=== PATIENT | male | born 1965 | race Caucasian/White ===

== ENCOUNTER 2020-12-13 12:41 | Emergency (ER) | payer OTHER, SELFPAY ==
--- NOTE | ~2020-12-13 | XR_ITS ---
EXAMINATION: XR ANKLE, LEFT CLINICAL INFORMATION: 4 days ago. Left ankle pain COMPARISON: None TECHNIQUE: AP, lateral, and mortise views of the left ankle. FINDINGS: There are moderate size calcaneal the and retrocalcaneal enthesophytes. No visible acute fracture, dislocation or subluxation seen. The soft tissues are normal. XR/XR ankle LT 2V IMPRESSION: Moderate-sized calcaneal heel and retrocalcaneal enthesophytes. There is no visible acute fracture or dislocation seen.
[2020-12-13 12:58] VITALS: BP 140/99; PULSE 92; RESP 16; TEMP 36.7; O2SAT 97; BMI 20.9
--- NOTE | 2020-12-13 14:16 | ED.LOWEXIN ---
HPI - Extremity Injury (Lower) General Chief Complaint: Extremity Injury, Lower Stated Complaint: lt ft injury Time Seen by Provider: 12/13/20 14:16 History of Present Illness HPI Narrative: Patient complains of left garvin pain after he hit into a piece of furniture while trying to move it several days ago now it is red and painful, no fever no chills no difficulty ambulating Related Data Previous Rx's Medication Instructions Recorded cephalexin 500 mg PO QID 7 Days #28 tab 12/13/20 ibuprofen 600 mg PO Q6H PRN #20 tab 12/13/20 oxycodone 5 mg PO Q6H PRN #10 tab 12/13/20 Allergies Allergy/AdvReac Type Severity Reaction Status Date / Time No Known Allergies Allergy Verified 12/13/20 14:30 Review of Systems Review of Systems: Positive for left garvin redness and pain Negatives are no fever no chills no dizziness no weakness no confusion or headache no neck pain no chest pain or shortness breath no abdominal pain no calf pain or swelling, no other skin rash no joint swelling PMFSH Past Medical History Source: nursing notes reviewed Medical History (Updated 12/14/20 @ 00:01 by Eren Yanes) Anxiety Asthma Depression GERD (gastroesophageal reflux disease) Seasonal allergies Surgical History (Updated 12/13/20 @ 13:01 by Lyndsey Huang) Hx of spinal surgery Social History Social History Advance Directives: Yes Advance Directives Information Provided: Yes Advance Directives on File: No Physical Exam Vital Signs: Vital Signs: Last Vital Signs Temp 98.0 F 12/13/20 12:58 Pulse 92 12/13/20 12:58 Resp 16 12/13/20 12:58 BP 140/99 H 12/13/20 12:58 Pulse Ox 97 12/13/20 12:58 Body Mass Index 20.9 General appearance is no acute distress Head is normocephalic atraumatic Neck is supple Respiratory no distress Extremities the left anterior lower leg has an area of redness with warmth and some tenderness without any significant wound there is no swelling of ankle or knee, patient is ambulating normally with full range of motion in knee and ankle Skin no other rash Neuro no gross motor or sensory deficit Course Course Course Narrative: X-ray was negative with no sign of bone infection Patient is treated for cellulitis with Keflex and discharged Discharge Plan Discharge Clinical Impression: Cellulitis Patient Disposition: Home, Self-Care Additional Instructions: There is an infected area on leg so we started antibiotic Keflex If you can, get probiotics available sack-awy-bcdqaul at the pharmacy to help prevent diarrhea from antibiotics Follow-up with her doctor in 2-3 days for recheck, if he is not available come to the ER for recheck in 2-3 days Return any time for spreading redness, worse pain and swelling, fever, red stripe up leg, any worse condition or any concerns Prescriptions: New cephalexin 500 mg tablet 500 mg PO QID 7 Days Qty: 28 RF: 0 ibuprofen 600 mg tablet 600 mg PO Q6H PRN (Reason: pain) Qty: 20 RF: 0 oxycodone 5 mg tablet 5 mg PO Q6H PRN (Reason: pain) Qty: 10 RF: 0 Interventions: ED Discharge Assessment Last Done: 12/13/20 15:02 Discharge Date/Time: 12/13/20 15:02
[2020-12-13] MEDS: cephALEXin 500 MG CAPSULE PO (14:37)
[2020-12-13] MEDS: Diphth,Pertus(ACell),Tet Adult 0.5 ML SYRINGE IM (14:37)
== END 2020-12-13 15:02 | disposition home or self-care (01) ==
PROVIDERS: Emergency Provider Emergency Medicine; PCP Internal Medicine
DX: L03.116 Cellulitis of left lower limb (principal); M79.662 Pain in left lower leg
CPT/HCPCS: 73600; 90471; 90715; 99283; 99284

== ENCOUNTER 2020-12-18 12:20 | Emergency (ER) | payer OTHER, SELFPAY ==
[2020-12-18 12:22] VITALS: BP 125/83; PULSE 84; RESP 18; TEMP 36.1; O2SAT 98; BMI 20.9
--- NOTE | 2020-12-18 14:04 | ED_ITS ---
HPI - Skin/Abscess/Foreign Bdy General Chief complaint: Skin/Abscess/Foreign Body Stated complaint: WOUND CHECK Time Seen by Provider: 12/18/20 13:43 Source: patient Mode of arrival: ambulatory History of Present Illness HPI narrative: 55-year-old male with a past medical history asthma, depression, GERD, anxiety, left lower extremity cellulitis seen in our ED on 12/13 presenting to ED for cellulitis recheck, reports symptoms persistent. Admits to compliance with previously prescribed Keflex. Denies fever, chills, numbness, tingling, drainage from area, trauma Related Data Previous Rx's Medication Instructions Recorded cephalexin 500 mg PO QID 7 Days #28 tab 12/13/20 ibuprofen 600 mg PO Q6H PRN #20 tab 12/13/20 oxycodone 5 mg PO Q6H PRN #10 tab 12/13/20 doxycycline hyclate 100 mg PO BID 7 Days #14 tab 12/18/20 hydrocodone-acetaminophen 1 tab PO Q8H PRN 3 Days #9 tab 12/18/20 Allergies Allergy/AdvReac Type Severity Reaction Status Date / Time No Known Allergies Allergy Verified 12/13/20 14:30 Review of Systems Review of Systems: Constitutional: No Fever, No Chills Cardiovascular: No Chest Pain, No SOB Respiratory: No Cough, No Sputum, No Wheezing Gastrointestinal: No Nausea, No Vomiting, No Abdominal pain Musculoskeletal: +LLE pain No Myalgias Skin: + left lower extremity erythema Neuro: No Weakness, No Numbness, No Paresthesias Yes all other systems are reviewed and are negative PMFSH Past Medical History Attestation statement: The following information was validated with the patient. Medical History (Updated 12/18/20 @ 14:06 by BEULAH Oquendo) Anxiety Asthma Depression GERD (gastroesophageal reflux disease) Seasonal allergies Surgical History Hx of spinal surgery Social History Social History Advance Directives: Yes Advance Directives Information Provided: Yes Advance Directives on File: No Physical Exam Vital Signs: Vital Signs: Last Vital Signs Temp 97.0 F 12/18/20 12:22 Pulse 84 12/18/20 12:22 Resp 18 12/18/20 12:22 BP 125/83 12/18/20 12:22 Pulse Ox 98 12/18/20 12:22 Body Mass Index 20.9 Const: General: cooperative and healthy appearing Orientation/consciousness: patient oriented x3 Limitations: no limitations HENMT: Head: Yes normal to inspection Ears: hearing grossly normal bilaterally General nose exam: Normal external nose present Face and sinus: Yes normal facial exam Eyes: General: appearance normal, both eyes and all related structures EOM: EOMs intact bilaterally Neck: Neck: Yes normal visual inspection Resp: Effort & Inspection: normal respiratory effort Cardio: Rate: regular rate Peripheral pulses: dorsalis pedis present Skin: Other: + hard indurated abscess noted to distal left lower extremity with surrounding cellulitis that is improved from previous drawn lines. + tender to palpation, no fluctuance, no streaking Neuro: General: patient oriented x3, tone normal and moves all extremities Gait exam (Neuro): Normal gait present Extrem: General: Yes normal to inspection MDM - Skin/Abscess/Foreign Bdy MDM Narrative Medical decision making narrative: 55-year-old male with a past medical history asthma, depression, GERD, anxiety, left lower extremity cellulitis seen in our ED on 12/13 presenting to ED for cellulitis recheck, reports symptoms persistent. On exam VSS, NAD/well-appearing, physical exam as above, consistent with indurated abscess with surrounding cellulitis. Will add doxycycline on to regimen Medical Records Attestation: I reviewed the patient's medical records. Discharge Plan Discharge Clinical Impression: Abscess of skin or subcutaneous tissue Qualifiers: Site of cutaneous abscess of extremity: lower extremity Laterality: left Cellulitis Qualifiers: Site of cellulitis of extremity: lower extremity Laterality: left Patient Disposition: Home, Self-Care Instructions: Cellulitis (ED), Abscess (ED) Additional Instructions: You have an abscess on your left lower extremity. Continue taking previously prescribed Keflex, in addition take doxycycline. Continue ibuprofen and Tylenol at home. In addition [place] his opiate pain medication, take only when pain is severe for the next 3 days. If area begins to spread past the lines/worsen, grow, begins to have drainage or you have fever return to the ED Tiene un absceso en la extremidad inferior izquierda. Contin?e tomando Keflex previamente recetado, adem?s tome doxiciclina. Contin?e con ibuprofeno y Tylenol en casa. Adem?s de [place], ballesteros analg?sico opi?civil engineering intern, t?colunga solo cuando el dolor sea intenso ginny los pr?ximos 3 d?as. Si el ?geovani comienza a extenderse m?s all? de las l?neas / empeora, crece, comienza a supurar o tiene fiebre, regrese al servicio de urgencias Prescriptions: New doxycycline hyclate 100 mg tablet 100 mg PO BID 7 Days Qty: 14 RF: 0 hydrocodone-acetaminophen 5-325 mg tablet 1 tab PO Q8H PRN (Reason: pain, severe) 3 Days Qty: 9 RF: 0 No Action cephalexin 500 mg tablet 500 mg PO QID 7 Days Qty: 28 RF: 0 ibuprofen 600 mg tablet 600 mg PO Q6H PRN (Reason: pain) Qty: 20 RF: 0 oxycodone 5 mg tablet 5 mg PO Q6H PRN (Reason: pain) Qty: 10 RF: 0 Referrals: Marsha Sanders MD [Primary Care Provider] - 5 days Print Language: Estonian
== END 2020-12-18 14:20 | disposition home or self-care (01) ==
PROVIDERS: Emergency Provider Emergency Medicine Emergency Medical Services; PCP Internal Medicine
DX: L02.416 Cutaneous abscess of left lower limb (principal); J45.909 Unspecified asthma, uncomplicated; M79.662 Pain in left lower leg; Z79.899 Other long term (current) drug therapy
CPT/HCPCS: 99283

== ENCOUNTER 2024-11-27 11:43 | Outpatient (REF) | payer OTHER, SELFPAY ==
--- OUTSIDE RECORDS SUMMARY | 2024-11-27 11:46 | XMS_ITS | Encounter Summary ---
Author Organization [facility] Address [address] [place] [address] Care Team Providers Care Pattern Puncher Name Role Phone Kobi Seymour MD Primary Care Provider [phone] Reason for Referral * Imaging (Emergency) - Authorized Specialty Diagnoses / Procedures Referred By Dennis randolph Referred To Contact Radiology Diagnoses Lump in armpit, left Procedures US Axilla (Breast) Limited Left Vlad Harp NP [address] [place] [address] Phone: tel: fax: [address] Phone: tel: Referral ID Status Reason Start Date Expiration Date V isits Requested Visits Authorized [id number] Authorized 11/22/2024 11/22/2025 1 1 Reason for Visit * Reason Comments lump Lump and swollen on left side of armpit Encounter Details Date Type Department Care Team (Late st Contact Info) Description 11/22/2024 3:30 PM EDT Office Visit Adult Medicine [address] [phone] Vlad Harp, EXERCISER HORSE [address] [place], [place] Enlarged lymph nodes in armpit (Primary Dx); Lump in armpit, left Social History Tobacco Use Types Packs/Day Years [...] for your loved ones. For example, children's lunchroom supervisor or elderly care for an older adult? [...] PM EDT documented as of this encounter Last Filed Vital Signs Vital Sign Reading Time Taken Comments Blood Pressure 126/83 11/22/2024 3:24 PM EDT Pulse 75 11/22/2024 3:24 PM EDT Temperature 36.6 ??C (97.9 ??F) 11/22/2024 3:24 PM ED T Respiratory Rate 16 11/22/2024 3:24 PM EDT Oxygen Saturation 99% 11/22/2024 3:24 PM EDT Inhaled Oxygen Concentration - - Weight 103 kg (226 lb 3.2 oz) 11/22/2024 3:24 P M EDT Height 175.3 cm (5' 9 ) 11/22/2024 3:24 PM EDT Body Mass Index 33.4 11/22/2024 3:24 PM EDT documented in this encounter Progress Notes * Vlad Harp NP - 11/22/2024 3:30 PM EDT PATIENT'S PCP: Kobi Seymour MD LAST VISIT IN THIS DEPARTMENT: Visit date not found I have obtained verbal consent from Gagandeep Rice prior to the recording. I have advised Gagandeep Rice that he may refuse the recording and require the recording to be turned off at anytime during this encounter. Due to language barrier, a [facility] chemical production machine operator (Sathish #[id number]) was present via video call during the history-taking and subsequent discussion with this patient. Gagandeep Rice is a 58 y.o. (: 1965) male who presents today for: Chief Complaint Patient presents with lump Lump and swollen on left side of armpit SUBJECTIVE History of Present Illness The patient is a 58-year-old male who presents for evaluation of left axillary discomfort/pain. Discomfort in the left axillary region has been present for the past week, described as a sensationof something being under the armpit a lump. Upon lifting his arms, the left side appears slightly more swollen than the right, as confirmed by his . The onset of noticeable swelling occurred yesterday. Pain is characterized as stabbing in nature. No systemic symptoms such as fevers, chills, or cough are reported. Gastrointestinal symptoms such as nausea or vomiting are absent. Respiratory symptoms such as shortness of breath are not reported. Chest pain is present, attributed to a known esophageal condition for which surgery was previously performed. This pain is typically triggered by the ingestion of air or certain types of food and is localized under one of his ribs. PAST SURGICAL HISTORY: Esophageal surgery Abscess drainage under the left axillary (self-drained) Review Of System Review of Systems Constitutional: Negative. Respiratory: Negative. Cardiovascular: Negative. Skin: Negative. Neurological: Negative. Hematological: Positive for adenopathy. Swelling under the left armpit Painful/tender to touch The following portions of the patient's chart were reviewed in this encounter and updated as appropriate: OBJECTIVE Vitals: 11/22/24 1524 BP: 126/83 Pulse: 75 Resp: 16 Temp: 36.6 ??C (97.9 ??F) TempSrc: Temporal SpO2: 99% Weight: 103 kg (226 lb 3.2 oz) Height: 1.753 m (69 ) Body mass index is 33.4 kg/m??. Plan is deferred until next visit Allergies Allergen Reactions House Dust Other Reaction(s): OTHER Runny nose ,sneezing Pollen Extracts Cough and Itching Active Medication: Current Outpatient Medications Medication Instructions clonazePAM (KLONOPIN) 1 mg, oral, 2 times daily PRN cyanocobalamin (VITAMIN B-12) 2,000 mcg tablet 1 tablet, Daily diphenhydrAMINE (BENADRYL) 50 mg capsule 1 capsule, Every 6 hours PRN ergocalciferol (VITAMIN D-2) 50,000 Units, Weekly esomeprazole (NEXIUM PACKET) 20 mg, oral, 2 times daily before meals finasteride (PROSCAR) 5 mg, Daily gabapentin (NEURONTIN) 300 mg capsule Take 1 capsule by mouth 2 times daily and 2 capsules by mouthat bedtime. hydrOXYzine pamoate (VISTARIL) 50 mg, 3 times daily PRN latanoprost (XALATAN) 0.005 % ophthalmic solution 1 drop, Nightly lidocaine 0.5% (SOLARCAINE) 0.5 % gel external gel 1 g, 2 times daily naproxen (EC NAPROSYN) 500 mg EC tablet Take 1 tablet twice a day for 14 days. Take with food pantoprazole (PROTONIX) 40 mg EC tablet TAKE 1 TABLET BY MOUTH 2 TIMES DAILY (BEFORE MEALS) FOR 180DAYS. senna (SENOKOT) 8.6 mg, Nightly sildenafiL (VIAGRA) 100 mg tablet 1 tablet, As needed sucralfate (CARAFATE) 100 mg/mL suspension TAKE 10 ML BY MOUTH 2 TIMES DAILY (BEFORE MEALS). traMADoL (ULTRAM) 50 mg, oral, 2 times daily PRN Physical Exam Vitals reviewed. Constitutional: Appearance: Normal appearance. Cardiovascular: Rate and Rhythm: Normal rate and regular rhythm. Pulses: Normal pulses. Heart sounds: Normal heart sounds. Pulmonary: Effort: Pulmonary effort is normal. Breath sounds: Normal breath sounds. Lymphadenopathy: Upper Body: Left upper body: Axillary adenopathy present. Comments: Painful/tender to touch Skin: General: Skin is warm and dry. Neurological: General: No focal deficit present. Mental Status: He is alert. Mental status is at baseline. Imaging No Pertinent Imaging Laboratory: CBC: No results found for: WBC , HGB , HCT , MCV , PLT CMP: No results found for: NA , K , CL , CO2 , GLUCOSE , BUN , CREATININE , CALCIUM , PROT , ALBUMIN , BILITOT , AST , ALT , URICACID , PHOS , MG , ALKPHOS , CKTOTAL , EGFR No results found for: LDLCALC 1. Enlarged lymph nodes in armpit 2. Lump in armpit, left Assessment & Plan 1. Left axillary discomfort - Reports discomfort and swelling in the left axillary region, which began about a week ago - No associated fever, chills, cough, nausea, vomiting, or shortness of breath; pain described as astabbing sensation - Possible infection vs enlarge lymph nodes - Comprehensive blood panel ordered to investigate the cause of discomfort - Ultrasound of the left axillary region scheduled to assess underlying structures and identify potential abnormalities FOLLOW-UP: Follow up if symptoms worsen or fail to improve, for Please book with care team. Vlad Harp NP ADULT MEDICINE [address] Today's documentation was made using voice recognition software.This note may contain grammatical errors secondary to this software. documented in this encounter Plan of Treatment Upcoming Encounters Date Type Department Care Team (Late st Contact Info) Description 01/03/2025 9:30 AM EDT Office Visit Orthopedics [address] [phone] Maxx Mccord PA [address] [place] [address] 02/13/2025 8:30 AM EDT Office Visit Adult [address] [phone] Bear Robbins PA [address] [place] [address] documented as of this encounter Results * US Axilla (Breast) Limited Left (11/24/2024 11:03 AM EDT) Anatomical Region Laterality Modality Breast Left Ultrasound 11/24/2024 4:21 PM EDT Narrative 11/24/2024 4:23 PM EDT Targeted ultrasound of the left axilla. History 58 years old male patient with lump in the left axilla. Examination was directed by the patient to the area of concern in the left axilla. ??There is no evidence of lymphadenopathy, there is no evidence of cystic or solid masses or abnormal vascularity. CONCLUSIONS: No ultrasonographic abnormality in the region of concern in the left axilla. -------- FINAL REPORT -------- Dictated By: Anamaria Capone Dictated Date: 11/24/2024 16:21 ET Assigned Physician: Anamaria Capone Reviewed and Electronically Signed By: Anamaria Capone Signed Date: 11/24/2024 16:23 ET Workstation ID: [id number] Transcribed By: Self Edit Transcribed Date: 11/24/2024 16:21 ET Procedure Note Anamaria Capone MD - 11/24/2024 Targeted ultrasound of the left axilla. History 58 years old male patient with lump in the left axilla. Examination was directed by the patient to the area of concern in the leftaxilla. There is no evidence of lymphadenopathy, there is no evidence ofcystic or solid masses or abnormal vascularity. CONCLUSIONS: No ultrasonographic abnormality in the region of concern inthe left axilla. -------- FINAL REPORT -------- Dictated By: Anamaria Capone Dictated Date: 11/24/2024 16:21 ET Assigned Physician: Anamaria Capone Reviewed and Electronically Signed By: Anamaria Capone Signed Date: 11/24/2024 16:23 ET Workstation ID: [id number] Transcribed By: Self Edit Transcribed Date: 11/24/2024 16:21 ET us Vlad Harp EXERCISER HORSE IMG US PROCEDURES Final Resu lt documented in this encounter Visit Diagnoses Diagnosis Enlarged lymph nodes in armpit- Primary Enlargement of lymph nodes Lump in armpit, left Lump in armpit, left documented in this encounter Discontinued Medications Medication Sig Discontinue Reason Start Date End Da te ketoconazole (NIZORAL) 2 % cream Apply cream to the affected areas of the bottom and top of feet twice daily 08/04/2023 11/22/2024 documented as of this encounter Additional Health Concerns Assessment Noted Time PHQ-9 Depression Total Score: 5 08/14/19 25 6:54 AM EST documented as of this encounter Care Teams Pattern Puncher Relationship Specialty Start Date End Date Kobi Seymour MD [address] [place] [address] PCP - General Internal Medicine 01/14/21 documented as of this encounter
--- OUTSIDE RECORDS SUMMARY | 2024-11-27 11:46 | XMS_ITS | Patient Health Record ---
Author Organization [facility] Address [address] [place], [place] [id number] Care Team Providers Care Roof Shingler Name Role Phone No, PCP Primary Care Provider Ino Fortune Unavailable [phone] Reason For Referral No Information Plan Of Treatment No Information Insurance Providers Payer Name Payer Address Payer Phone Subscriber Number Group Number Insured Name Patient Relationship to Insured Coverage Start Date Coverage End Date [place] Medicaid Standard [address] [place] [address] [id number] Gagandeep Elena Self - patient is the insured 3
--- OUTSIDE RECORDS SUMMARY | 2024-11-27 11:46 | XMS_ITS | Encounter Summary ---
Author Organization [employer] Address [address] [place] [address] Care Team Providers Care Alternative Energy Engineer Name Role Phone Kobi Seymour MD Primary Care Provider [phone] Encounter Details Date Type Department Care Team (Latest Contact Info) Description 11/22/2024 8:23 AM EDT - 11/22/2024 11:59 PM EDT Hospital Encounter XRAY - [place] [address] [place] [address] Trigger finger, left middle finger Discharge Disposition: Home or Self Care Social History Tobacco Use Types Packs/Day Years [...] care for your loved ones. For example, early childhood worker or elderly care for an older adult? [...] PM EDT documented as of this encounter Medications at Time of Discharge clonazePAM (KlonoPIN) 1 mg tablet TAKE 1 TABLET (1 MG TOTAL) BY MOUTH TWICE A DAY IF NEEDED FOR ANXIETY 56 tablet 11/23/2024 traMADoL (ULTRAM) 50 mg tablet Take 1 tablet (50 mg total) by mouth 2 (two) times a day if needed for severe pain. FOR SEVERE PAIN Max Daily Amount: 100 mg 60 tablet 11/23/2024 cyanocobalamin (VITAMIN B-12) 2,000 mcg tablet Take 1 tablet (2,000 mcg total) by mouth 1 (one) time each day. 03/24/2023 diphenhydrAMINE (BENADRYL) 50 mg capsule Take 1 capsule (50 mg total) by mouth every 6 (six) hours if needed for itching. 02/12/2023 ergocalciferol (VITAMIN D-2) 1,250 mcg (50,000 unit) capsule Take 1 capsule (50,000 Units total) by mouth 1 (one) time per week. 11/07/2024 esomeprazole (NexIUM Packet) 20 mg packet Take 20 mg by mouth 2 (two) times a day before meals. 1800 packet 3 07/12/2024 finasteride (PROSCAR) 5 mg tablet Take 1 tablet (5 mg total) by mouth 1 (one) time each day. gabapentin (NEURONTIN) 300 mg capsule Take 1 capsule by mouth 2 times daily and 2 capsules by mouth at bedtime. 11/18/2023 hydrOXYzine pamoate (VISTARIL) 50 mg capsule Take 1 capsule (50 mg total) by mouth 3 (three) times a day if needed for anxiety. 12/13/2023 latanoprost (XALATAN) 0.005 % ophthalmic solution Administer 1 drop into both eyes at bedtime. 10/22/2024 lidocaine 0.5% (SOLARCAINE) 0.5 % gel external gel Apply 1 g topically 2 (two) times a day. 04/13/2024 naproxen (EC NAPROSYN) 500 mg EC tablet Take 1 tablet twice a day for 14 days. Take with food 28 tablet 10/27/2024 pantoprazole (PROTONIX) 40 mg EC tablet TAKE 1 TABLET BY MOUTH 2 TIMES DAILY (BEFORE MEALS) FOR 180 DAYS. 180 tablet 1 10/23/2024 senna (SENOKOT) 8.6 mg tablet Take 1 tablet (8.6 mg total) by mouth at bedtime. 10/06/2022 sildenafiL (VIAGRA) 100 mg tablet Take 1 tablet (100 mg total) by mouth as needed. sucralfate (CARAFATE) 100 mg/mL suspension TAKE 10 ML BY MOUTH 2 TIMES DAILY (BEFORE MEALS). 1800 mL 3 08/07/2024 clonazePAM (KlonoPIN) 1 mg tablet Take 1 tablet (1 mg total) by mouth 2 (two) times a day if needed for anxiety. 56 tablet 09/11/2024 traMADoL (ULTRAM) 50 mg tablet Take 1 tablet (50 mg total) by mouth 2 (two) times a day if needed for severe pain. Max Daily Amount: 100 mg 60 tablet 09/11/2024 documented as of this encounter Discharge Disposition Disposition Code Departure Means Destination Home or Self Care documented in this encounter Plan of Treatment Upcoming Encounters Date Type Department Care Team (Late st Contact Info) Description 01/03/2025 9:30 AM EDT Office Visit Orthopedics [address] [phone] Maxx Mccord PA [address] [place], [place] 02/13/2025 8:30 AM EDT Office Visit Adult Medicine [place] [address] [phone] Bear Robbins PA [address] [place] [address] documented as of this encounter Procedures Procedure Name Priority Date/Time Associated Diagnosis Comments XR HAND 3+ VIEWS LEFT Routine 11/22/2024 8:36 AM EDT Trigger finger, left middle finger documented in this encounter Results * XR Hand 3+ Views Left (11/22/2024 8:36 AM EDT) Anatomical Region Laterality Modality Upper Extremities, Hand Left Radiogra [facility] Imaging 11/22/2024 9:35 AM EDT Impressions 11/22/2024 9:40 AM EDT No acute fracture or dislocation of the left hand. -------- FINAL REPORT -------- Dictated By: Loraine Sesay Dictated Date: 11/22/2024 09:35 ET Assigned Physician: Loraine Sesay Reviewed and Electronically Signed By: Loraine Sesay Signed Date: 11/22/2024 09:40 ET Workstation ID: [id number] Transcribed By: Self Edit Transcribed Date: 11/22/2024 09:35 ET Narrative 11/22/2024 9:40 AM EDT HISTORY: trigger finger TECHNIQUE: AP, lateral, and oblique radiographs of the left hand COMPARISON: None FINDINGS: There is normal mineralization with no evidence of fracture or malalignment. ??The visualized articulations are normal. ??No significant soft tissue swelling is identified. Procedure Note Loraine Sesay MD - 11/22/2024 HISTORY: trigger finger TECHNIQUE: AP, lateral, and oblique radiographs of the left hand COMPARISON: None FINDINGS: There is normal mineralization with no evidence of fracture ormalalignment. The visualized articulations are normal. No significantsoft tissue swelling is identified. IMPRESSION: No acute fracture or dislocation of the left hand. -------- FINAL REPORT -------- Dictated By: Loraine Sesay Dictated Date: 11/22/2024 09:35 ET Assigned Physician: Loraine Sesay Reviewed and Electronically Signed By: Loraine Sesay Signed Date: 11/22/2024 09:40 ET Workstation ID: [id number] Transcribed By: Self Edit Transcribed Date: 11/22/2024 09:35 ET Maxx RIOJAS IMG XR PROCEDURES Final Result documented in this encounter Visit Diagnoses Diagnosis Trigger finger, left middle finger documented in this encounter Additional Health Concerns Assessment Noted Time PHQ-9 Depression Total Score: 5 08/14/19 25 6:54 AM EST documented as of this encounter Care Teams Alternative Energy Engineer Relationship Specialty Start Date End Date Kobi Seymour MD [address] [place] [id number] PCP - General Internal Medicine 01/14/21 documented as of this encounter
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
--- OUTSIDE RECORDS SUMMARY | 2024-11-27 11:46 | XMS_ITS | Clinical Summary ---
Author Organization [facility] Address [address] [id number] Care Team Providers Care Business Analyst Name Role Phone Kobi Seymour MD Primary Care Provider [phone] Allergies Active Allergy Reactions Criticality Noted Date Comments Dust Other (See Comments) Medium 06/12/2022 Runny nose ,sneezing Medications Medication Sig Dispensed Refills Start Date End Date Status gabapentin (NEURONTIN) 300 MG capsule Take 1 capsule by mouth 3 (three) times a day. 0 10/21/2021 Active clonazePAM (KlonoPIN) 0.5 MG tablet TAKE 1 TABLET BY MOUTH TWICE A DAY NEEDED FOR ANXIETY 0 12/22/2021 Active omeprazole (PriLOSEC) 20 MG capsule Take 1 capsule by mouth daily. 0 07/29/2021 Active ergocalciferol (VITAMIN D2) capsule 38727 units TAKE 1 CAPSULE BY MOUTH ONCE A WEEK FOR 90 DAUS 0 10/31/2021 Active metoprolol tartrate (LOPRESSOR) 25 MG tablet Take 25 mg by mouth 2 (two) times a day. 0 10/21/2021 Active hydrOXYzine (ATARAX) 50 MG tablet Take 50 mg by mouth. 0 08/05/2021 Active traMADol (ULTRAM) 50 MG tablet TAKE 1 TABLET (50 MG) BY ORAL ROUTE EVERY 6 HOURS WITH FOOD NEEDED FOR PAIN 0 11/18/2021 Active fluconazole (DIFLUCAN) 100 MG tablet TAKE 2 TABLETS BY MOUTH ON DAY 1 THEN 1 TABLET DAILY FOR 4 WEEKS 0 08/14/2022 Active Active Problems Problem Noted Date Diagnosed Date CIDP (chronic inflammatory demyelinating polyneu ropathy) 02/03/2022 Long-term current use of intravenous immunoglobu nhan (IVIG) 01/12/2022 Social History Tobacco Use Types Packs/Day Years Used Date Smoking Tobacco: Never Assessed Sex and Gender Information Value Date Recorded Sex Assigned at Male 01/01/2022 10:35 AM EDT Gender Identity Male 05/21/2022 9:23 AM EDT Sexual Orientation Straight 03/26/2022 11 :44 AM EDT Job Start Date Occupation Industry Not on file Not on file Not on file Last Filed Vital Signs Vital Sign Reading Time Taken Comments Blood Pressure 103/69 08/21/2022 9:17 AM EST Pulse 90 08/21/2022 9:17 AM EST Temperature 36.6 ??C (97.8 ??F) 08/21/2022 9:17 AM ES T Respiratory Rate 20 08/20/2022 9:00 AM EST Oxygen Saturation 100% 08/21/2022 9:17 AM EST Inhaled Oxygen Concentration - - Weight 79.4 kg (175 lb 0.7 oz) 08/20/2022 9:00 A M EST Height 175.3 cm (5' 9 ) 06/12/2022 9:29 AM EDT Body Mass Index 25.85 06/12/2022 9:29 AM EDT Plan of Treatment Health Maintenance Due Date Last Done Comments Hepatitis B Vaccines (1 of 3 - 3-dose series) 1965 Hepatitis C Screening 1965 COVID-19 Vaccine (#1) 06/07/1965 Depression Screening 1976 Preventative Health Evaluation 1982 Colon Cancer Screening (Colonoscopy) 2009 Shingrix-Zoster Vaccine (1 of 2) 2014 Influenza Vaccine (#1) 2024 DTap / Tdap / Td (2 - Td or Tdap) 03/28/2028 018 Pneumococcal Vaccine Aged Out No long er eligible based on patient's age to complete this topic RSV Ped < 20 months Aged Out No longe r eligible based on patient's age to complete this topic Care Teams Business Analyst Relationship Specialty Start Date End Date Kobi Seymour MD PCP - General Internal Medicine 01/01/22
--- OUTSIDE RECORDS SUMMARY | 2024-11-27 11:46 | XMS_ITS | Encounter Summary ---
Author Organization [facility] Address [address] [place] [address] Care Team Providers Care Nursing Home Director Name Role Phone Kobi Seymour MD Primary Care Provider Reason for Referral * Imaging (Emergency) - Authorized Specialty Diagnoses / Procedures Referred By Contac t Referred To Contact Radiology Diagnoses Lump in armpit, left Procedures US Axilla (Breast) Limited Left Vlad Harp NP [address] [place] [address] Phone: tel: fax: [address] Phone: tel: Referral ID Status Reason Start Date Expiration Date V isits Requested Visits Authorized [id number] Authorized 11/22/2024 11/22/2025 1 1 Reason for Visit * Imaging (Emergency) - Authorized Specialty Diagnoses / Procedures Referred By Contac t Referred To Contact Radiology Diagnoses Lump in armpit, left Procedures US Axilla (Breast) Limited Left Vlad Harp NP [address] [place] [address] Phone: tel: fax: [facility] [address] Phone: tel: Referral ID Status Reason Start Date Expiration Date V isits Requested Visits Authorized [id number] Authorized 11/22/2024 11/22/2025 1 1 Encounter Details Date Type Department Care Team (Latest Contact Info) Description 11/24/2024 10:56 AM EDT - 11/24/2024 11:59 PM EDT Hospital Encounter Radiology Department - [address] [phone] Lump in armpit, left Discharge Disposition: Home or Self Care Social [...] care for your loved ones. For example, childcare center administrator or elderly care for an older adult? [...] DAILY (BEFORE MEALS). 1800 mL 3 08/07/2024 documented as of this encounter Discharge Disposition Disposition Code Departure Means Destination Home or Self Care documented in this encounter Plan of Treatment Upcoming Encounters Date Type Department Care Team (Late st Contact Info) Description 01/03/2025 9:30 AM EDT Office Visit Orthopedics [address] [phone] Maxx Mccord PA [address] [place], [place] 02/13/2025 8:30 AM EDT Office Visit Adult Medicine South - [address] [phone] Bear Robbins PA [address] [place] [address] documented as of this encounter Procedures Procedure Name Priority Date/Time Associated Diagnosis Comments US AXILLA (BREAST) LIMITED LEFT STAT 11/24/2024 11:03 AM EDT Lump in armpit, left documented in this encounter Results * US Axilla (Breast) [...] Signed Date: 11/24/2024 16:23 ET Workstation ID: [id number] Transcribed By: Self Edit Transcribed Date: 11/24/2024 [...] Signed Date: 11/24/2024 16:23 ET Workstation ID: [id number] Transcribed By: Self Edit Transcribed Date: 11/24/2024 16:21 ET us Vlad Harp BUCKLE STRINGER IMG US PROCEDURES Final Resu lt documented in this encounter Visit Diagnoses Diagnosis Lump in armpit, left documented in this encounter Additional Health Concerns Assessment Noted Time PHQ-9 Depression Total Score: 5 08/14/19 25 6:54 AM EST documented as of this encounter Care Teams Nursing Home Director Relationship Specialty Start Date End Date Kobi Seymour MD [address] [place] [phone] PCP - General Internal Medicine 01/14/21 documented as of this encounter
--- OUTSIDE RECORDS SUMMARY | 2024-11-27 11:46 | XMS_ITS | Encounter Summary ---
Author Organization [facility] Address [address] [place] [address] Care Team Providers Care Market Survey Representative Name Role Phone Kobi Seymour MD Primary Care Provider [phone] Encounter Details Date Type Department Care Team (Latest Contact Info) Description 05/31/2024 9:31 AM EDT Hospital Encounter TH HISTORIC ENCOUNTERS EASTERN CONVERSION ONLY Kalee Connors PA [address] [place] [address] Other dysphagia Social History Tobacco Use Types [...] for your loved ones. For example, children's program coordinator or elderly care for an older adult? [...] 01/03/2025 9:30 AM EDT Office Visit Orthopedics [address] [phone] Maxx Mccord PA [address] [place], [place] 02/13/2025 8:30 AM EDT Office Visit Adult Medicine [address] [phone] Bear Robbins PA [address] [place] [address] documented as of this encounter Procedures Procedure Name Priority Date/Time Associated Diagnosis Comments CR BARIUM SWALLOW Routine 06/01/2024 9:4 7 AM EDT Other dysphagia documented in this encounter Results * CR BARIUM SWALLOW (06/01/2024 9:47 AM EDT) Anatomical Region Laterality Modality Radiographic Barbie ging 05/31/2024 9:35 AM EDT Narrative 06/01/2024 9:47 AM EDT [facility] Diagnostic Imaging Department [address] [place] [id number] Patient: ??VIDA ELENA ?/Age/Sex: 1965 - 58 - M Unit#: ??[id number] ? Location/Status: ??SPDIGEN/REG CLI ? Mnemonic/Ordering Site: ??[facility] Ordering Physician: ??KALEE CONNORS CR Barium Swallow - 05/31/24 - [...] at the GE junction during his endoscopy. Partner radiographs: 1 view chest radiograph demonstrates cardiac [...] BEULAH Valles at 1040 05/31/2024. Dictating Physician: ??PASCUAL WILSON MD Electronically Signed by: ??PASCUAL WILSON MD Dic Date/Time: ??05/31/24 1137 Sign date/Time: ??06/01/24 0987 Procedure Note Pascual Wilson MD - 06/10/2024 [facility] Diagnostic Imaging Department [address] [place] [phone] Patient: VIDA ELENA/Age/Sex: 1965 - 58 - M Unit#: [id number] Location/Status: SPDIGEN/REG CLI Mnemonic/Ordering Site: [facility] Ordering Physician: KALEE CONNORS CR Barium [...] at the GE junction during his endoscopy. Partner radiographs: 1 view chest radiograph demonstrates cardiac [...] confirmed with ordering provider BEULAH Valles at [id number]. Dictating Physician: PASCUAL WILSON MD Electronically Signed by: PASCUAL WILSON MD Dic Date/Time: 05/31/24 1137 Sign date/Time: 06/01/24 0947 Kalee RIOJAS IMG XR PROCEDURES Final Resul t documented in this encounter Visit Diagnoses Diagnosis Other dysphagia documented in this encounter Care Teams Market Survey Representative Relationship Specialty Start Date End Date Kobi Seymour MD [address] [place] [address] PCP - General Internal Medicine 01/14/21 documented as of this encounter
--- OUTSIDE RECORDS SUMMARY | 2024-11-27 11:46 | XMS_ITS | Encounter Summary ---
Author Organization [facility] Address [address] [place] [address] Care Team Providers Care Weatherseal Technician Name Role Phone Kobi Seymour MD Primary Care Provider [phone] Reason for Visit * Reason Comments Trigger Finger Consult * Consultation (Routine) - Closed Specialty Diagnoses / Procedures Referred By Contact Referred To Contact Orthopaedics / Orthopaedic Surgery Diagnoses Trigger ring finger of left hand Nick Madsen, CAKE W[employer]ER [address] [place] [address] Phone: tel: fax: Maxx Mccord PA [address] [place] [address] Phone: tel: fax: Referral ID Status Reason Start Date Expiration Date V isits Requested Visits Authorized [id number] Closed Specialty Services Required 10/27/2024 10/27/2025 1 1 Encounter Details Date Type Department Care Team (Late st Contact Info) Description 11/22/2024 9:00 AM EDT Office Visit Orthopedics [address] [phone] Maxx Mccord PA [address] [place] [address] Trigger ring finger of left hand Social History Tobacco Use Types Packs/Day Years [...] for your loved ones. For example, child daycare worker or elderly care for an older [...] Sign Reading Time Taken Comments Blood Pressure - - Pulse - - Temperature - - Respiratory Rate 16 11/22/2024 8:43 AM EDT Oxygen Saturation - - Inhaled Oxygen Concentration - - Weight 101 kg (223 lb) 11/22/2024 8:43 AM EDT Height 175.3 cm (5' 9 ) 11/22/2024 8:43 AM EDT Body Mass Index 32.93 11/22/2024 8:43 AM EDT documented in this encounter Plan of Treatment Upcoming Encounters Date Type Department Care Team (Late st Contact Info) Description 01/03/2025 9:30 AM EDT Office Visit Orthopedics [address] [phone] Maxx Mccord PA [address] [place] [address] 02/13/2025 8:30 AM EDT Office Visit Adult Medicine South - [address] [phone] Bear Robbins PA [address] [place] [address] Pending Results Name Type Priority Associated Diagnoses Date /Time Injection tendon or ligament: L ring A1 Procedures Routine Trigger ring finger of left hand 11/22/2024 9:00 AM EDT documented as of this encounter Procedures Procedure Name Priority Date/Time Associated Diagnosis Comments INJECTION TENDON OR LIGAMENT Routine 11/22/2024 9:00 AM EDT Trigger ring finger of left hand documented in this encounter Visit Diagnoses Diagnosis Trigger ring finger of left hand documented in this encounter Administered Medications Inactive Administered Medications - up to 3 most recent administrations Medication Order MAR Action Action Date Dose Rate Site lidocaine (XYLOCAINE) 1 % injection 2 mL 2 mL, injection, Once PRN Procedure, Starting on Wed11/22/24 at 0900, For 1 doseIndications:Trigger ring finger of left hand Given 11/22/2024 9:00 AM EDT 2 mL methylPREDNISolone acetate (DEPO-Medrol) injection 40 mg 40 mg, intra-articular, Once PRN Procedure, Starting on Wed11/22/24 at 0900, For 1 doseIndications:Trigger ring finger of left hand Given 11/22/2024 9:00 AM EDT 40 mg documented in this encounter Historical Medications * This list may reflect changes made after this encounter. latanoprost (XALATAN) 0.005 % ophthalmic solution Administer 1 drop into both eyes at bedtime. 10/22/2024 finasteride (PROSCAR) 5 mg tablet Take 1 tablet (5 mg total) by mouth 1 (one) time each day. ergocalciferol (VITAMIN D-2) 1,250 mcg (50,000 unit) capsule Take 1 capsule (50,000 Units total) by mouth 1 (one) time per week. 11/07/2024 added in this encounter Orders Outpatient Referral Count Last Ordered Date Fir st Ordered Date AMB REFERRAL TO ORTHOPEDIC 1 11/22/2024 documented in this encounter Additional Health Concerns Assessment Noted Time PHQ-9 Depression Total Score: 5 08/14/19 25 6:54 AM EST documented as of this encounter Care Teams Weatherseal Technician Relationship Specialty Start Date End Date Kobi Seymour MD [address] [place] [address] PCP - General Internal Medicine 01/14/21 documented as of this encounter
[2024-11-27 12:51] LABS: Erythrocyte Sedimentation Rate 3 MM/HR (0-15)
[2024-11-28 08:34] LABS: Syphilis Screen Nonreactive (Nonreactive)
[2024-11-29 22:59] LABS: Lyme Abs Screen <0.90 index
== END 2024-11-27 11:44 | disposition home or self-care (01) ==
LOC: HO.LAB 11:43
PROVIDERS: PCP Internal Medicine; Visit Provider Psychiatry & Neurology Neurology
DX: G62.9 Polyneuropathy, unspecified (principal)
CPT/HCPCS: 36415; 82550; 85652; 86617; 86618; 86780

== ENCOUNTER 2025-03-05 08:55 | Outpatient (AMB) | payer OTHER, SELFPAY ==
--- OUTSIDE RECORDS SUMMARY | 2024-05-31 09:31 | XMS_ITS | Encounter Summary ---
Author Organization [employer] Address [address] [place] [address] Care Team Providers Care Small Engine Mechanic Name Role Phone Kobi Seymour MD Primary Care Provider Encounter Details Date Type Department Care Team (Latest Contact Info) Description 05/31/2024 9:31 AM EDT Hospital Encounter TH HISTORIC ENCOUNTERS EASTERN CONVERSION ONLY Kalee Connors PA [address] [place] [address] Other dysphagia Social History Tobacco Use Types [...] care for your loved ones. For example, children's literature professor or elderly care for an older adult? [...] Date Recorded What is your living situation? 0 08/14/2024 Sex and Gender Information Value Date Recorded Sex Assigned at Male 06/14/2021 4:59 PM EDT Legal Sex Male 7:29 PM EDT Gender Identity Male 06/14/2021 4:59 PM EDT Sexual Orientation Straight 06/14/2021 4: 59 PM EDT documented as of this encounter Plan of Treatment Upcoming Encounters Date Type Department Care Team (Late st Contact Info) Description 03/19/2025 9:30 AM EDT Office Visit Orthopedics [facility] [address] [place] [address] Maxx Mccord PA [address] [place] [address] 05/09/2025 9:10 AM EDT Office Visit Gastroenterology - [place] [address] [place] [phone] Kalee Connors PA [address] [address] 09/12/2025 9:45 AM EST Office Visit Adult Medicine [facility] [address] [place] [phone] Kobi Seymour MD [address] [place], [place] documented as of this encounter Procedures Procedure Name Priority Date/Time Associated Diagnosis Comments CR BARIUM SWALLOW Routine 06/01/2024 9:4 7 AM EDT Other dysphagia documented in this encounter Results * CR BARIUM SWALLOW (06/01/2024 9:47 AM EDT) Anatomical Region Laterality Modality Radiographic Barbie ging 05/31/2024 9:35 AM EDT Narrative 06/01/2024 9:47 AM EDT [facility] Diagnostic Imaging Department [address] [place] [address] Patient: FELISHAEdu ALICIAVIDA./Age/Sex: 1965 - 58 - M Unit#: [id number] Location/Status: SPDIGEN/REG CLI Mnemonic/Ordering Site: [facility] Ordering Physician: KALEE CONNORS CR Barium Swallow - 05/31/241037 Report Status:Signed FINDINGS: Double contrast esophagram performed. [...] at the GE junction during his endoscopy. Surgery Technician radiographs: 1 view chest radiograph demonstrates cardiac [...] Date/Time: 05/31/24 1137 Sign date/Time: 06/01/24 0947 Procedure Note Pascual Wilson MD - 06/10/2024 [facility] Diagnostic Imaging Department [address] [place] [id number] Patient: FELISHA ALICIAVIDA Vieyra./Age/Sex: 1965 - 58 - M Unit#: [id number] Location/Status: [facility] CLI Mnemonic/Ordering Site: [facility] Ordering Physician: KALEE CONNORS CR Barium Swallow - 05/31/24 - 1037 Report Status:Signed FINDINGS: Double contrast esophagram performed. [...] at the GE junction during his endoscopy. Surgery Technician radiographs: 1 view chest radiograph demonstrates cardiac [...] confirmed with ordering provider BEULAH Valles at [id number]. Dictating Physician: PASCUAL WILSON MD Electronically Signed by: PASCUAL WILSON MD Dic Date/Time: 05/31/24 1137 Sign date/Time: 06/01/24 0947 Kalee RIOJAS IMG XR PROCEDURES Final Resul t documented in this encounter Visit Diagnoses Diagnosis Other dysphagia documented in this encounter Care Teams Small Engine Mechanic Relationship Specialty Start Date End Date Kobi Seymour MD [address] [place] [address] PCP - General Internal Medicine 01/14/21 documented as of this encounter
--- NOTE | 2025-03-05 09:09 | MHC.OFFVIS ---
Intake Visit Reasons: f/u Conf Allergies No Known Allergies Allergy (Verified 12/13/20 14:30) HPI Comments Details: 59 yo RH man who carried a diagnosis of CIDP since [address] Martinez. He had two cervical spine surgeries in 2009 and . He developed bilateral arm numbness and pain in 2019 when the second surgery was done at [facility]. His initial symptoms were whole body itching, which was after the neck surgery. He saw a endoscopy technican and was told that it was neurogenic itching. Then he had both arm numbness and weakness, and hand dexterity was reduced. He had LP at [facility] and was diagnosed with CIDP and treated with ivIg. He did it for 2 years after which he stopped the treatment on his own. Now he was numbness in his arms, especially in right, and also in left leg. He is walking wihout assistance. [facility] Medical History (Updated 03/05/25 @ 09:23 by Chloe Barnett MD) Cervical spondylarthritis Peripheral neuropathy GERD (gastroesophageal reflux disease) Seasonal allergies Depression Anxiety Asthma Surgical History (Updated 03/05/25 @ 09:13 by Chloe Barnett MD) Hx of spinal surgery Review of Systems Const Details: Constitutional:?No fever, chills, fatigue, weight loss, or night sweats. HEENT:?No headache, vision changes, hearing loss, nasal congestion, sore throat. Neurological:?No dizziness, syncope, seizures, numbness, tingling, weakness, tremors, memory loss. Psychiatric:?No anxiety, depression, mood swings, sleep disturbance, or hallucinations. Endocrine:?No heat/cold intolerance, polydipsia, polyuria, or hair/skin changes. Hematologic/Lymphatic:?No easy bruising, bleeding, or lymphadenopathy. Integumentary (Skin):?No rash, lesions, itching, or color changes. ? Physical Exam Neuro Other: Mental Status: Alert and oriented to person, place, and time. Normal attention. Normal spontaneous speech, fluency, and comprehension. No obvious issues with mood and memory. Affect is appropriate. Cranial Nerves: CN II: Visual berry full to confrontation, visual acuity intact. CN III, IV, : Pupils equal, round, reactive to light and accommodation. Extraocular movements are normal. CN V: Facial sensation is normal. CN VII: Facial movements symmetrical. CN VIII: Hearing intact to bedside conversation is normal. CN IX, X: Palate elevates symmetrically. CN XI: Shoulder shrug and head turn symmetrical. CN XII: Tongue midline without atrophy or fasciculations. Extrapyramidal: Full facial expressions and blinking. No rigidity. Movements are appropriate with no tremor or abnormality. Speech: Normal; no dysarthria or tremor. Assessment & Plan Assessment & Plan (1) Cervical spinal stenosis: Comment: MRI C spine at [facility] in 2019: s/p surgery C 5/6, DJD, mild disc disease MRI C Spine at [facility] in 2022: Multilevel DJD, severe foramina narrowing R C 4/5 and 6/7, mild to mod stenosis at C 4/5 and 6/7 (reported) CT brain WO at [facility] in 2022: Mild central atrophy MRI brain WO at [facility] in 2021: WNL (reported) Code(s): M48.02 - Spinal stenosis, cervical region Category: Medical (2) Status post cervical spinal fusion: Code(s): Z98.1 - Arthrodesis status Category: Surgical (3) Lumbar radiculopathy, chronic: Comment: EMG/NCS R arm and leg in January 2025 at off: Mod R median neuropathy across the CT, R mid lumbar radiculapathy Code(s): M54.16 - Radiculopathy, lumbar region Category: Medical (4) Carpal tunnel syndrome: Comment: EMG/NCS R arm and leg in January 2025 at off: Mod R median neuropathy across the CT, R mid lumbar radiculapathy Code(s): G56.00 - Carpal tunnel syndrome, unspecified upper limb Category: Medical Qualifiers: Laterality: right Qualified Code(s): G56.01 - Carpal tunnel syndrome, right upper limb Plan Impression: a: Multiple spine surgeries including cervical and lumbar spine s/p fusion and hardware placement b: No indication of a diffuse neuropathy like CIDP c: Carpal tunnel syndrome d: Chronic lumbar radiculapathy Rec: a: Referral to surgery for CTS b: No intevention at this time for back issues c: Stay physically active while avoiding risk behavior like overspeeding or heavy weight lifting Orders: Referrals Hand Surgery Referral G56.01 - Carpal tunnel syndrome, right upper limb Coding Level of Care Code Tele Est Pt Level 5 (22115) Diagnoses Cervical spinal stenosis M48.02 Status post cervical spinal fusion Z98.1 Lumbar radiculopathy, chronic M54.16 Carpal tunnel syndrome of right wrist G56.01 Laterality: right
--- OUTSIDE RECORDS SUMMARY | 2025-03-05 09:33 | XMS_ITS | Patient Health Record ---
Author Organization [facility] Address [address] [place], [place] [id number] Care Team Providers Care Job Forwarder Name Role Phone NO, PCP Primary Care Provider Ino Silva Unavailable [phone] Reason For Referral No Information Plan Of Treatment No Information Insurance Providers Payer Name Payer Address Payer Phone Subscriber Number Group Number Insured Name Patient Relationship to Insured Coverage Start Date Coverage End Date [place] [address] [place] [address] [id number] Gagandeep Elena Self - patient is the insured 3
--- OUTSIDE RECORDS SUMMARY | 2025-03-05 09:33 | XMS_ITS | Clinical Summary ---
Author Organization [facility] Address [address] [place] [address] [place] [address] Phone Care Team Providers Care Launch Manager Name Role Phone Kobi Seymour MD Primary Care Provider + Social History Tobacco Use Types Packs/Day Years Used Date Smoking Tobacco: Never Assessed Education Answer Date Recorded Are you interested in more education? Not on leona e 11/20/2024 Are you concerned about learning? Not on file 11/20/2024 No 11/20/2024 No 11/20/2024 Digital Access Answer Date Recorded No 11/20/2024 No 11/20/2024 Reliable internet access at home? Not on file 11/20/2024 Device with a working camera? Not on file Sex and Gender Information Value Date Recorded Sex Assigned at Male 11/20/2024 9:23 AM EDT Legal Sex Male 9:08 AM EDT Gender Identity Male 11/20/2024 9:23 AM EDT Sexual Orientation Straight 11/20/2024 9: 23 AM EDT Plan of Treatment Upcoming Encounters Date Type Department Care Team (Late st Contact Info) Description 03/29/2025 1:00 PM EDT Office Visit [facility] Neuromuscular [address] [place] [address] Lisandra Kyle PA-C [address] [place] [address] [email or web address] Health Maintenance Due Date Last Done Comments Adult Td,Tdap Booster 1965 LIPID PANEL 1965 DEPRESSION SCREENING 1976 SMOKING Hx and SMOKELESS TOB ACCO SCREENING 1977 HEPATITIS C SCREENING 1982 HIV ONE-TIME SCREENING (18-6 5 YEARS) 1982 COLOGUARD 2009 COLONOSCOPY 2009 COLORECTAL CANCER SCREENING 2009 FIT TEST 2009 FOBT 2009 SIGMOIDOSCOPY 2009 VIRTUAL COLONOSCOPY 2009 PNEUMOCOCCAL VACCINES (50+ y ears) (1 of 1 - PCV) 2014 ZOSTER VACCINES (1 of 2) 2014 COVID-19 VACCINE ( - 2023-2 5 season) 2024 RSV VACCINE (1 - 1-dose 75+ series) 12/07/2039 HEPATITIS A VACCINES Aged Out No long er eligible based on patient's age to complete this topic HIB VACCINES Aged Out No longer eligi ble based on patient's age to complete this topic MENINGOCOCCAL VACCINES (ACWY) Aged Out No longer eligible based on patient's age to complete this topic MENINGOCOCCAL VACCINES (B) Aged Out N o longer eligible based on patient's age to complete this topic Medical Devices Not on file Insurance [facility] ONE [facility] MEDICARE REPLACEMENT BEULAH SERRANO [facility] MEDICARE PART A & [facility] ONE [facility]ARE MEDICARE REPLACEMENT MEDICARE PART A & B [facility] ONE CARE MEDICARE REPLACEMENT MEDICARE PART A & B [facility] ONE CARE MEDICARE REPLACEMENT MEDICARE PART A & B [facility] ONE CARE MEDICARE REPLACEMENT MEDICARE PART A & B [facility] MEDICARE [facility]PLACEMENT MEDICARE PART A & [facility] Care Teams Launch Manager Relationship Specialty Start Date End Date Kobi Seymour MD [address] [place] [address] PCP - General Internal Medicine 11/20/24 Additional Source Comments The information contained in this document represents components of the legal health record. It is not the complete legal health record.[facility]
--- OUTSIDE RECORDS SUMMARY | 2025-03-05 09:33 | XMS_ITS | Clinical Summary ---
Author Organization [facility] Address [address] [id number] Care Team Providers Care Vest Tailor Name Role Phone Kobi Seymour MD Primary Care Provider [phone] Allergies Active Allergy Reactions Criticality Noted Date [...] 0 07/29/2021 Active ergocalciferol (VITAMIN D2) capsule 58463 units TAKE 1 CAPSULE BY MOUTH ONCE [...] 90 08/21/2022 9:17 AM EST Temperature 36.6 C (97.8 F) 08/21/2022 9:17 AM EST Respiratory Rate 20 08/20/2022 9:00 AM EST Oxygen Saturation 100% 08/21/2022 9:17 AM EST Inhaled Oxygen Concentration - - Weight 79.4 kg (175 lb 0.7 oz) 08/20/2022 9:00 A M EST Height 175.3 cm (5' 9 ) 06/12/2022 9:29 AM EDT Body Mass Index 25.85 06/12/2022 9:29 AM EDT Plan of Treatment Health Maintenance Due Date Last Done Comments Hepatitis C Screening 1965 COVID-19 Vaccine (#1) 06/07/1965 Depression Screening 1976 Preventative Health Evaluation 1982 Colon Cancer Screening (Colonoscopy) 2009 Shingrix-Zoster Vaccine (1 of 2) 2014 Influenza Vaccine (#1) 2025 DTap / Tdap / Td (2 - Td or Tdap) 03/28/2028 018 RSV Adult > 60+ Yrs or Pregn ant (1 - 1-dose 75+ series) 12/07/2039 Hepatitis B Vaccines Aged Out No long er eligible based on patient's age to complete this topic Pneumococcal Vaccine Aged Out No long er eligible based on patient's age to complete this topic RSV Ped < 20 months Aged Out No longe r eligible based on patient's age to complete this topic Care Teams Vest Tailor Relationship Specialty Start Date End Date Kobi Seymour MD PCP - General Internal Medicine 01/01/22
== END 2025-03-05 09:31 | disposition home or self-care (01) ==
LOC: HO.HSM 08:59
PROVIDERS: PCP Internal Medicine; Visit Provider Psychiatry & Neurology Neurology
DX: M48.02 Spinal stenosis, cervical region (principal); Z98.1 Arthrodesis status; G56.01 Carpal tunnel syndrome, right upper limb
CPT/HCPCS: 99214

== ENCOUNTER → 2025-03-05 08:55 | Outpatient (BNVA) | payer OTHER, SELFPAY | PROVIDERS: PCP Internal Medicine; Visit Provider Psychiatry & Neurology Neurology | DX: M48.02 Spinal stenosis, cervical region (principal); M54.16 Radiculopathy, lumbar region; G56.01 Carpal tunnel syndrome, right upper limb; Z98.1 Arthrodesis status | CPT/HCPCS: 99212 ==

== ENCOUNTER 2025-04-17 09:46 | Outpatient (AMB) | payer OTHER, SELFPAY ==
[2025-04-17 09:51] VITALS: BMI 21.0
--- NOTE | 2025-04-17 09:51 | A.OFFVIS_ITS ---
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 Patient reports numbness and tingling affecting all digits. P er patient, he has a history of Chronic Inflammatory Demyelinating Polyneuropathy (CIDP) therefore he cannot tell which fingers are more affected.?Patient also complains of left ring trigger finger. Patient is staus post Left Carpal Tunnel Release ~ [address] Harvey. 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 Patient reports numbness and tingling affecting all digits. Per patient, he has a history of Chronic Inflammatory Demyelinating Polyneuropathy (CIDP) therefore he cannot tell which fingers are more affected.?Patient also complains of left ring trigger finger. Patient is staus post Left Carpal Tunnel Release ~ [address] Harvey. The patient does state that he is more bothered by the left ring finger trigger finger then the numbness, tingling, and pain in the right hand. [facility] Medical History (Updated 04/18/25 @ 09:52 by BEULAH Singh) Cervical spondylarthritis Peripheral neuropathy GERD (gastroesophageal reflux disease) Seasonal allergies Depression Anxiety Asthma Surgical History (Updated 04/17/25 @ 09:55 by SANDI Santos) History of hand surgery History of abdominal surgery History of knee surgery Hx of spinal surgery Social History (Updated 04/17/25 @ 09:53 by SANDI Santos) Patient Tobacco Use Status: Never used Tobacco Current occupational status: unemployed Current occupation: rt handed Review of Systems Const All systems reviewed & are unremarkable except as noted in HPI and below Physical Exam Vital Signs: BMI result Body Mass Index 21.0 Extrem Other: Patient is alert, oriented, and in no acute distress. Neuro: Diminished sensation of the tips of all digits of bilateral hands in the office today No thenar or intrinsic wasting Good APB muscle belly firing in good finger cross Vascular: Cap refill brisk Pain: Pain associated with locking and catching of the left ring finger Tenderness to A1 rima of the left ring finger ROM: There is visible and palpable locking and catching of the left ring finger Patient is able to flex and extend all other digits of bilateral hands fully and without difficulty Skin: No lacerations or abrasions. General: No ecchymosis, erythema, or evidence of infection. Psych: Appears grossly normal Affect normal Attitude cooperative Assessment & Plan Assessment & Plan (1) Trigger finger, left ring finger: Code(s): M65.342 - Trigger finger, left ring finger Category: Medical (2) Right carpal tunnel syndrome: Code(s): G56.01 - Carpal tunnel syndrome, right upper limb Category: Medical Plan 1. Trigger finger, left ring finger I educated the patient about the condition. I discussed both operative and nonoperative treatment options. The patient would like to proceed with surgery. The risks and benefits of operative treatment were discussed with the patient and the patient wishes to proceed with surgery. These risks include, but are not limited to, risk of damage to blood vessels, nerves, tendons, infection, recurrence, incomplete relief of preoperative symptoms, persistent pain, possible need for further surgery, and the risks associated with regional blocks and/or anesthesia. Plan is to take the patient to the operating room at some point in the next few weeks for the following procedures: 1. Left ring finger trigger release under local All of the preoperative paperwork including the consent was discussed today. All of the patient's questions were answered in the clinic today. The patient understands that they will be in contact with our certified ophthalmic surgical assistant to discuss scheduling their procedure. Patient denies diabetes, blood thinners, asthma, heart issues, lung issues, kidney issues, or current smoking. 1. Right carpal tunnel syndrome Symptoms constant, daily, worse at night Patient would like to proceed with operative intervention on the trigger finger prior to any intervention for the right carpal tunnel syndrome, as given the uncertainty of the definitive cause of his numbness and tingling, as well as being more bothered by the trigger finger, he feels that this is the best way to move forward Patient in his do state that patient has a follow-up with a neurologist at [facility] [place] for his chronic neuropathy issues I feel that this is reasonable as well, given the reasons listed above Patient is educated that as postoperative visit for the left ring finger trigger finger, we can get signed up for operative intervention for carpal tunnel syndrome on the right if patient would like to move forward with this Coding Level of Care Code New Pt Level 4 (65800) Diagnoses Trigger finger, left ring finger M65.342 Right carpal tunnel syndrome G56.01
--- OUTSIDE RECORDS SUMMARY | 2025-04-17 11:26 | XMS_ITS | Clinical Summary ---
Author Organization [facility] Address [address] [id number] Care Team Providers Care Roofing Tile Sorter Name Role Phone Kobi Seymour MD Primary Care Provider [phone] Allergies Active Allergy Reactions Criticality Noted Date [...] 0 07/29/2021 Active ergocalciferol (VITAMIN D2) capsule 01681 units TAKE 1 CAPSULE BY MOUTH ONCE [...] age to complete this topic Care Teams Roofing Tile Sorter Relationship Specialty Start Date End Date Kobi Seymour MD PCP - General Internal Medicine 01/01/22
--- OUTSIDE RECORDS SUMMARY | 2025-04-17 11:26 | XMS_ITS | Patient Health Record ---
Author Organization [facility] Address [address] [place] [address] Care Team Providers Care Space Controller Name Role Phone NO, PCP Primary Care Provider Ino Silva Unavailable [phone] Reason For Referral No Information Plan Of Treatment No Information Insurance Providers Payer Name Payer Address Payer Phone Subscriber Number Group Number Insured Name Patient Relationship to Insured Coverage Start Date Coverage End Date [place] Medicaid Standard [address] [place] [address] [id number] Gagandeep Elena Self - patient is the insured 3
== END 2025-04-17 10:56 | disposition home or self-care (01) ==
PROVIDERS: PCP Internal Medicine
DX: M65.342 Trigger finger, left ring finger (principal); G56.01 Carpal tunnel syndrome, right upper limb
CPT/HCPCS: 99204

== ENCOUNTER → 2025-04-17 09:46 | Outpatient (BNVA) | payer OTHER, SELFPAY | PROVIDERS: PCP Internal Medicine | DX: M65.342 Trigger finger, left ring finger (principal); G56.01 Carpal tunnel syndrome, right upper limb; G61.81 Chronic inflammatory demyelinating polyneuritis | CPT/HCPCS: 99202 ==

== ENCOUNTER 2025-06-04 11:13 | Day surgery (SDC) | payer OTHER, SELFPAY ==
--- OUTSIDE RECORDS SUMMARY | 2024-05-31 09:31 | XMS_ITS | Encounter Summary ---
Author Organization [employer] Address [address] [place] [address] Care Team Providers Care Braiding Machine Operator Name Role Phone Kobi Seymour MD Primary Care Provider [phone] Encounter Details Date Type Department Care Team (Latest Contact Info) Description 05/31/2024 9:31 AM EDT Hospital Encounter TH HISTORIC ENCOUNTERS EASTERN CONVERSION ONLY Kalee Connors PA [address] [place] [address] Other dysphagia Social History Tobacco Use Types [...] for your loved ones. For example, child psychologist or elderly care for an older adult? [...] Care Team (Late st Contact Info) Description 05/09/2025 9:10 AM EDT Office Visit Gastroenterology - [place] [facility] [address] [phone] Kalee Connors PA [address] [facility] [address] [place] [address] 09/12/2025 9:45 AM EST Office Visit Adult Medicine [address] [phone] Kobi Seymour MD [address] [place] [phone] documented as of this encounter Procedures Procedure Name Priority Date/Time Associated Diagnosis Comments CR BARIUM SWALLOW Routine 06/01/2024 9:4 7 AM EDT Other dysphagia documented in this encounter Results * CR BARIUM SWALLOW (06/01/2024 9:47 AM EDT) Anatomical Region Laterality Modality Radiographic Barbie ging 05/31/2024 9:35 AM EDT Narrative 06/01/2024 9:47 AM EDT [facility] Diagnostic Imaging Department [address] [place] [address] Patient: VIDA ELENA./Age/Sex: 1965 - 58 - M Unit#: [id number] Location/Status: [facility] CLI Mnemonic/Ordering Site: [facility] Ordering Physician: KALEE CONNORS CR Barium Swallow [...] at the GE junction during his endoscopy. Cancer Program Consultant radiographs: 1 view chest radiograph demonstrates cardiac [...] by: PASCUAL WILSON MD Dic Date/Time: 05/31/24 8505 Sign date/Time: 06/01/24 3260 Procedure Note Pascual Wilson MD - 06/10/2024 [facility] Diagnostic Imaging Department [address] [place], [place] [id number] Patient: FELISHAEdu ALICIAVIDA/Age/Sex: 1965 - 58 - M Unit#: [id number] Location/Status: [facility] CLI [facility] Ordering Physician: KALEE CONNORS CR Barium Swallow [...] at the GE junction during his endoscopy. Cancer Program Consultant radiographs: 1 view chest radiograph demonstrates cardiac [...] confirmed with ordering provider BEULAH Valles [place] [id number]. Dictating Physician: PASCUAL WILSON MD Electronically Signed by: PASCUAL WILSON MD Dic Date/Time: 05/31/24 1137 Sign date/Time: 06/01/24 3058 us Kalee RIOJAS IMG XR PROCEDURES Final Resul t documented in this encounter Visit Diagnoses Diagnosis Other dysphagia documented in this encounter Care Teams Braiding Machine Operator Relationship Specialty Start Date End Date Kobi Seymour MD [address] [place] [phone] PCP - General Internal Medicine 01/14/21 documented as of this encounter
--- OUTSIDE RECORDS SUMMARY | 2025-04-18 16:39 | XMS_ITS | Patient Health Record ---
Author Organization [facility] Address [address] [place] [address] Care Team Providers Care Senior Principal Process Engineer Name Role Phone NO, PCP Primary Care Provider Ino Silva Unavailable [phone] Reason For Referral No Information Plan Of Treatment No Information Insurance Providers Payer Name Payer Address Payer Phone Subscriber Number Group Number Insured Name Patient Relationship to Insured Coverage Start Date Coverage End Date [place] Medicaid Standard [address] [place] [address] [id number] Gagandeep Elena Self - patient is the insured 3
--- OUTSIDE RECORDS SUMMARY | 2025-04-18 16:39 | XMS_ITS | Clinical Summary ---
Author Organization [facility] Address [address] [id number] Care Team Providers Care Maintenance Mechanic Engine Name Role Phone Kobi Seymour MD Primary Care Provider [phone] Allergies Active Allergy Reactions Criticality Noted Date [...] 0 07/29/2021 Active ergocalciferol (VITAMIN D2) capsule 46486 units TAKE 1 CAPSULE BY MOUTH ONCE [...] age to complete this topic Care Teams Maintenance Mechanic Engine Relationship Specialty Start Date End Date Kobi Seymour MD PCP - General Internal Medicine 01/01/22
--- OUTSIDE RECORDS SUMMARY | 2025-04-18 16:39 | XMS_ITS | Clinical Summary ---
Author Organization Patient Business Ser [facility] Address [address] [place] [address] Care Team Providers Care Regional Branch Manager Name Role Phone Kobi Seymour MD Primary Care Provider Allergies Active Allergy Reactions Criticality Noted Date Comments House Dust Medium 06/12/2022 Other Reaction(s): OTHER Runny nose ,sneezing Pollen Extracts Cough,Itching 12/15/2017 Medications diphenhydrAMINE (BENADRYL) 50 mg capsule Take 1 capsule (50 mg total) by mouth every 6 (six) hours if needed for itching. 023 Active senna (SENOKOT) 8.6 mg tablet Take 1 tablet (8.6 mg total) by mouth at bedtime. 023 Active sildenafiL (VIAGRA) 100 mg tablet Take 1 tablet (100 mg total) by mouth as needed. Active esomeprazole (NexIUM Packet) 20 mg packet Take 20 mg by mouth 2 (two) times a day before meals. 1800 packet 3 024 2024 Active sucralfate (CARAFATE) 100 mg/mL suspension TAKE 10 ML BY MOUTH 2 TIMES DAILY (BEFORE MEALS). 1800 mL 3 024 Active naproxen (EC NAPROSYN) 500 mg EC tablet Take 1 tablet twice a day for 14 days. Take with food 28 tablet 025 Active ergocalciferol (VITAMIN D-2) 1,250 mcg (50,000 unit) capsule Take 1 capsule (50,000 Units total) by mouth 1 (one) time per week. Active finasteride (PROSCAR) 5 mg tablet Take 1 tablet (5 mg total) by mouth 1 (one) time each day. Active latanoprost (XALATAN) 0.005 % ophthalmic solution Administer 1 drop into both eyes at bedtime. Active hydrOXYzine pamoate (VISTARIL) 50 mg capsule TAKE 1 CAPSULE BY MOUTH 3 TIMES DAILY NEEDED FOR ANXIETY. 270 capsule 1 025 Active gabapentin (NEURONTIN) 300 mg capsuleIndication s:Neuropathy Take 2 capsules (600 mg total) by mouth at bedtime. 180 capsule 1 025 Active cyanocobalamin (VITAMIN B-12) 2,000 mcg tablet Take 1 tablet (2,000 mcg total) by mouth 1 (one) time each day. 90 tablet 1 025 Active atorvastatin (LIPITOR) 10 mg tabletIndications :Hyperlipidemia, unspecified hyperlipidemia type Take 1 tablet (10 mg total) by mouth at bedtime. 90 each 1 025 2025 Active lidocaine 0.5% (SOLARCAINE) 0.5 % gel external gel Apply 1 g topically 2 (two) times a day. 30 g 5 025 Active clonazePAM (KlonoPIN) 1 mg tablet Take 1 tablet (1 mg total) by mouth 2 (two) times a day if needed for anxiety. Max Daily Amount: 2 mg 56 tablet 025 Active traMADoL (ULTRAM) 50 mg tabletIndications :Cervical spondylosis with radiculopathy Take 1 tablet (50 mg total) by mouth 2 (two) times a day if needed for severe pain. Max Daily Amount: 100 mg 60 tablet 025 Active pantoprazole (PROTONIX) 40 mg EC tablet TAKE 1 TABLET BY MOUTH 2 TIMES DAILY (BEFORE MEALS) FOR 180 DAYS. 180 tablet 1 025 Active pantoprazole (PROTONIX) 40 mg EC tablet TAKE 1 TABLET BY MOUTH 2 TIMES DAILY (BEFORE MEALS) FOR 180 DAYS. 180 tablet 1 025 09/10/ 2025 Discontinued clonazePAM (KlonoPIN) 1 mg tablet Take 1 tablet (1 mg total) by mouth 2 (two) times a day if needed for anxiety. Max Daily Amount: 2 mg 56 tablet 025 2024 Discontinued(R eorder) traMADoL (ULTRAM) 50 mg tabletIndications :Cervical spondylosis with radiculopathy Take 1 tablet (50 mg total) by mouth 2 (two) times a day if needed for severe pain. Max Daily Amount: 100 mg 60 tablet 025 2024 Discontinued(R eorder) Active Problems Problem Noted Date Diagnosed Date Long-term current use of intravenous immunoglobu nhan (IVIG) 05/30/2024 History of fusion of cervical spine 05/30/2024 Cervical radiculopathy 05/26/2024 Varicose vein of leg 05/01/2024 Class 2 obesity 05/05/2023 Chronic low back pain 05/05/2023 Cervical spondylosis with radiculopathy 05/05/20 Overview (05/01/2024): Last Assessment & Plan: Patient [...] had right C4-5 facet injection 06/15/2023 at [facility], he does not recall having this injection, is not sure if it helped for any length of time. He has done physical therapy in the past. 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 Hx: S/p anterior cervical discectomy and fusion, C5- 6 in [place], previous multilevel lumbar fusion in [place]. Previous left C7 foraminotomy with Dr. Mora. Mr. Carol Rice had C-spine MRI 03/19/2023 at [facility] that showed degenerative changes above and below [...] study. CIDP (chronic inflammatory d emyelinating polyneuropathy) (CMS/HCC V24, CMS/HCC V28) 02/03/2022 Palpitations 12/18/2021 Overview (05/01/2024): Last [...] Encounters Date Type Department Care Team Description 03/19/2025 9:30 AM EDT Office Visit [address] [phone] Maxx Mccord PA Trigger ring finger of left hand (Primary Dx) 02/14/2025 9:45 AM EDT - 02/14/2025 11:59 PM EDT Hospital Encounter [address] [phone] Left-sided chest wall pain Discharge Disposition: Home or Self Care 02/14/2025 9:00 AM EDT Office Visit Adult Medicine [address] [phone] Gracia Vázquez NP Encounter for annual physical exam (Primary Dx); Gastroesophageal reflux disease, unspecified whether esophagitis present; CIDP (chronic inflammatory demyelinating polyneuropathy) (CMS/HCC V24, CMS/HCC V28); Left-sided chest wall pain; Benign prostatic hyperplasia with incomplete bladder emptying; Hyperlipidemia, unspecified hyperlipidemia type 02/05/2025 9:30 AM EDT Office Visit Orthopedic[address] [phone] Maxx Mccord PA Trigger ring finger of left hand (Primary Dx) 01/22/2025 10:00 AM EDT Office Visit Adult Medicine [address] [phone] Gracia Vázquez NP Chest pain, unspecified type (Primary Dx); Anterior chest wall pain; Neuropathy; Cervical spondylosis with radiculopathy from Last 3 Months Immunizations Name Administration [...] COMMENT: C6-7 hemilaminectomy and foraminotomy - [place], [facility] NECK SURGERY PROCEDURE: HISTORICAL NECK SURGERY; COMMENT: [...] 02/03/2022 DX:CIDP (chronic inflammator y demyelinating polyneuropathy) ([facility]) Family History Medical History Relation Name Comments [...] your loved ones. For example, early childhood or elderly care for an older adult? [...] Sign Reading Time Taken Comments Blood Pressure 124/77 02/14/2025 8:54 AM EDT Pulse 88 01/22/2025 10:08 AM EDT Temperature 36.6 C (97.8 F) 02/14/2025 8:54 AM EDT Respiratory Rate 16 03/19/2025 9:21 AM EDT Oxygen Saturation 99% 01/22/2025 10:08 AM EDT Inhaled Oxygen Concentration - - Weight 99.8 kg (220 lb) 03/19/2025 9:21 AM EDT Height 175.3 cm (5' 9 ) 03/19/2025 9:21 AM EDT Body Mass Index 32.49 03/19/2025 9:21 AM EDT Plan of Treatment Upcoming Encounters Date Type Department Care Team (Late st Contact Info) Description 05/09/2025 9:10 AM EDT Office Visit Gastroenterology - [place] [address] [place] [phone] Kalee Connors PA [address] [place] [address] 09/12/2025 9:45 AM EST Office Visit Adult Medicine [address] [phone] Kobi Seymour MD [address] [place] [address] Health Maintenance Due Date Last Done Comments Pneumococcal Vaccine: 50+ Years (1 of 2 - PCV) 12/07/1983 Zoster Vaccines (1 of 2) 2014 HIV Screening 06/13/2021 Medicare Annual Wellness Visit 06/13/2021 Colorectal Cancer Screening: Colonoscopy 05/14/2024 05/14/2014 RSV Immunization Adult Patients (1 - Risk 60-74 years 1-dose series) 2024 COVID-19 Vaccine (1 - 2023-2 5 season) 2025 Influenza Vaccine (#1) 2025 Social Influencers of Health Screening 08/14/2025 08/14/2024 Cholesterol Screening (Lipid Panel) 02/14/2030 02/14/2025, 04/13/2024, 04/13/2024 DTaP,Tdap,and Td Vaccines (3 - Td or Tdap) 12/13/2030 12/13/2020, 03/28/2018 Hepatitis C Screening Completed 07/25/2021 , 07/25/2021 Depression Screening Completed 08/14/2024 HIB Vaccines Aged Out No longer eligi ble based on patient's age to complete this topic HPV Vaccines Aged Out No longer eligi ble based on patient's age to complete this topic Hepatitis A Vaccines Aged Out No long er eligible based on patient's age to complete this topic Hepatitis B Vaccines Aged Out No long [...] Procedure Name Priority Date/Time Associated Diagnosis Comments VITAMIN B12 Routine 02/14/2025 10:17 AM EDT Neuropathy VITAMIN D 25 HYDROXY Routine 02/14/2025 10:17 AM EDT Neuropathy THYROID STIMULATING HORMONE WITH REFLEX TO FREE T4 AND FREE T3 Routine 02/14/2025 10:17 AM EDT Encounter for annual physical exam HEMOGLOBIN A1C Routine 02/14/2025 10:17 AM EDT Encounter for annual physical exam LIPID PANEL WITH REFLEX TO DIRECT LDL Routine 02/14/2025 10:17 AM EDT Encounter for annual physical exam XR RIBS W CHEST 3+ VIEWS LEFT Routine 02/14/2025 10:00 AM EDT Left-sided chest wall pain INJECTION TENDON OR LIGAMENT Routine 02/05/2025 9:30 AM EDT Trigger ring finger of left hand HEPATITIS C SCREENING Routine 07/25/2021 from Last 3 Months or Most Recently Relevant to Health Maintenance Results * Thyroid stimulating hormone with reflex to free t4 and free t3 (02/14/2025 10:17 AM EDT) [facility] TSH 1.34 0.40 - 4.00 mcIU/mL LAB CHEMISTRY METHOD 02/14/2025 2:05 PM EDT [facility] Blood Venous blood specimen / Unknown Venipuncture / Unknown 02/14/2025 10:17 AM EDT 02/14/2025 10:17 AM EDT us Gracia Vázquez SCENARIO WRITER LAB BLOOD ORDERABLES Final Re sult [facility] [address] [place] [address], [place] [phone] * (ABNORMAL) Lipid panel with reflex to direct LDL (02/14/2025 10:17 AM EDT) [facility] Cholesterol 222(H) 0 - 200 mg/dL LAB CHEMISTRY METHOD 02/14/2025 1:31 PM EDT [facility] Triglycerides 161(H) 0 - 150 mg/dL LAB CHEMISTRY METHOD 02/14/2025 1:31 PM EDT [facility] HDL 58 >=40 mg/dL LAB CHEMISTRY METHOD 02/14/2025 1:31 PM EDT [facility] LDL Calculated 132(H) 0 - 100 mg/dL LAB CHEMISTRY METHOD 02/14/2025 1:31 PM EDT [facility] VLDL Cholesterol Tano 32.2 mg/dL LAB CHEMISTRY METHOD 02/14/2025 1:31 PM EDT [facility] Non HDL Chol. (LDL+VLDL) 164(H) <145 mg/dL LAB CHEMISTRY METHOD 02/14/2025 1:31 PM EDT [facility] Chol/HDL Ratio 3.8 0.0 - 4.4 LAB CHEMISTRY METHOD 02/14/2025 1:31 PM EDT [facility] Blood Venous blood specimen / Unknown Venipuncture / Unknown 02/14/2025 10:17 AM EDT 02/14/2025 10:17 AM EDT Gracia Vázquez SCENARIO WRITER LAB BLOOD ORDERABLES Final Re sult Performing Organization Address City/[facility]/ZIP Co de Phone Number [facility] [address] [place] [address], [place] [phone] * Vitamin D 25 hydroxy (02/14/2025 10:17 AM EDT) Vit D, 25-Hydroxy 50.5 30.0 - 80.0 ng/mL LAB CHEMISTRY METHOD 02/14/2025 2:05 PM EDT [facility] Blood Venous blood specimen / Unknown Venipuncture / Unknown 02/14/2025 10:17 AM EDT 02/14/2025 10:17 AM EDT Gracia Vázquez SCENARIO WRITER LAB BLOOD ORDERABLES Final Re sult [facility] [address] [place] [address], [place] [phone] * Hemoglobin A1c (02/14/2025 10:17 AM EDT) Hemoglobin A1C 5.8 <6.5 % LAB CHEMISTRY METHOD 02/14/2025 1:11 PM EDT [facility] Mean Bld Glu Estim. 120 mg/dL LAB CHEMISTRY METHOD 02/14/2025 1:11 PM EDT [facility] Blood Venous blood specimen / Unknown Venipuncture / Unknown 02/14/2025 10:17 AM EDT 02/14/2025 10:17 AM EDT Gracia Vázquez SCENARIO WRITER LAB BLOOD ORDERABLES Final Re sult Performing Organization Address City/[facility]/ZIP Co de Phone Number [facility] [address] [place] [address], [place] [phone] * Vitamin B12 (02/14/2025 10:17 AM EDT) Pathologist [facility] Vitamin B-12 346 250 - 900 pcg/mL LAB CHEMISTRY METHOD 02/14/2025 1:31 PM EDT [facility] Blood Venous blood specimen / Unknown Venipuncture / Unknown 02/14/2025 10:17 AM EDT 02/14/2025 10:17 AM EDT Gracia Vázquez SCENARIO WRITER LAB BLOOD ORDERABLES Final Re sult Performing Organization Address [facility]/ZIP Co de Phone Number [facility] [address] [place] [address], [place] [phone] * XR Ribs w Chest 3+ Views Left (02/14/2025 10:00 AM EDT) Anatomical Region Laterality Modality Body Left Radiographic Barbie ging 02/14/2025 11:0 2 AM EDT Impressions 02/14/2025 11:04 AM EDT No acute pulmonary pathology. No visualized rib fractures. -------- FINAL REPORT -------- Dictated By: Izabella Gonzalez Dictated Date: 02/14/2025 11:02 ET Assigned Physician: Izabella Gonzalez Reviewed and Electronically Signed By: Izabella Gonzalez Signed Date: 02/14/2025 11:04 ET Workstation ID: [id number] Transcribed By: Self Edit Transcribed Date: 02/14/2025 11:02 ET Narrative 02/14/2025 11:04 AM EDT CHEST, FRONTAL VIEW LEFT RIBS, 2 VIEWS HISTORY: Pain. Prior study: Chest x-ray 07/25/2021. FINDINGS: The lungs are clear. No pleural effusion is seen. No pneumothorax is seen. The cardiomediastinal silhouette is within normal limits. No acute or aggressive appearing bony abnormalities are seen. Anterior fusion plate of the lower cervical spine is partially visualized. Oblique views of the left ribs demonstrate no displaced fractures. Procedure Note Izabella Gonzalez MD - 02/14/2025 CHEST, FRONTAL VIEW LEFT RIBS, 2 VIEWS HISTORY: Pain. Prior study: Chest x-ray 07/25/2021. FINDINGS: The lungs are clear. No pleural effusion is seen. No pneumothorax is seen.The cardiomediastinal silhouette is within normal limits. No acute or aggressive appearing bony abnormalities are seen. Anteriorfusion plate of the lower cervical spine is partially visualized. Oblique views of the left ribs demonstrate no displaced fractures. IMPRESSION: No acute pulmonary pathology. No visualized rib fractures. -------- FINAL REPORT -------- Dictated By: Izabella Gonzalez Dictated Date: 02/14/2025 11:02 ET Assigned Physician: Izabella Gonzalez Reviewed and Electronically Signed By: Izabella Gonzalez Signed Date: 02/14/2025 11:04 ET Workstation ID: [id number] Transcribed By: Self Edit Transcribed Date: 02/14/2025 11:02 ET us Gracia Vázquez SCENARIO WRITER IMG XR PROCEDURES Final Resul t * Injection tendon or ligament: L ring A1 (02/05/2025 9:30 AM EDT) Maxx Cooper PA - 02/05/2025 9:30 AM EDT BEULAH Fregoso 02/05/2025 9:57 AM Injection tendon or ligament: L ring A1 for trigger finger Indications: tendon swelling Details: 25 G needle, volar approach Medications: 2 mL lidocaine 1 %; 40 mg methylPREDNISolone acetate 40 mg/mL Outcome: tolerated well, no immediate complications 1 cc total injected Informed Consent: Site: Tendon sheath A1 rima Laterality: Left Relevant images/test results available and reviewed: yes Health status cleared: Yes Risk/complications/benefits details: Risks include but are not limited to: The treatment may not accomplish the desired results. Additionally bleeding, infection, damage to tendon, nerve, cartilage, muscle; thinning or lightening of the skin in the area of injection; flushing or redness of the face, elevated blood pressure or blood sugar, allergic reaction, rash, increased pain Patient questions answered: yes Patient agrees, verbalizes understanding, and wants to proceed: yes Consent given by: Patient Informed consent discussion completed by Physician/CK with patient: Written; patient signed and dated; copy to patient Pre-procedure timeout performed: yes Maxx RIOJAS IN CLINIC/BEDSIDE ORDERABLES Fin al Result * Hepatitis C Screening (07/25/2021) Pathologist [facility] Hepatitis C Screening Abstracted Historical Provider HEALTH MAINTENANCE Final Result from Last 3 Months or Most Recently Relevant to Health Maintenance Insurance [facility] MEDICARE Member Subscriber Plan / Payer (Ef fective 2019-Present) Name:VIDA ELENA Relation to Subscriber:Self Name:Vida Elena Payer ID:[id number] Group ID:[id number] Type:Not on file Address: [facility] [address] [address] Advance Directives Documents on File Type Date Recorded Patient Aquatic Centre Manager Expl anation Health Care Decision (hx) 10/09/2021 [...] DIRECTIVE Health Care Decision (hx) 10/09/2021 AD HENRANDEZ DIRECTIVE Care Teams Regional Branch Manager Relationship Specialty Start Date End Date Kobi Seymour MD [address] [place] [address] PCP - General Internal Medicine 01/14/21
[2025-06-04 11:16] VITALS: BMI 32.2
[2025-06-04 11:34] VITALS: BP 129/68; PULSE 78; RESP 18; TEMP 36.7; O2SAT 96
--- NOTE | 2025-06-04 12:46 | MHC.SHP ---
Pre-Procedural Eval Section A - 24 Hr Update-Section A only Date of Service: 06/04/25 The patient is an INPATIENT: No Changes since office visit: No Cold of Flu in the past 2 weeks, No New Medical Problems, No Changes in Medication and No Patient answered all questions The patient has been examined within 24 hours of the surgical procedure. The History & Physical has been completed within 30 days and I have reviewed it.: Yes Section B - Complete if H&P > 30 days Chief Complaint: Trigger finger, left ring finger Allergies: Allergies Allergy/AdvReac Type Severity Reaction Status Date / Time No Known Allergies Allergy Verified 06/04/25 11:35 Plan Diagnosis/Plan: Unchanged I have reviewed the history and physical and performed a pertinent physical examination on my patient. No changes have occurred unless specified. Time Spent With Patient Time: Total time managing care of this patient today ____ minutes.
--- NOTE | 2025-06-04 12:47 | W.PM.OPN ---
Operative Note Operative Note Date of Service: 06/04/25 Narrative: Operative Note Preop diagnosis: 1. Left ring finger Trigger finger Postop diagnosis: Same Procedure: 1. Left ring finger A1 rima release Surgeon: Renea Hernandes MD Compressor Station Chief Engineer: None Anesthesia: local block using 1% lidocaine with epinephrine Findings: No locking or catching after A1 rima release EBL: Less than 5 mL Tourniquet time: None Specimens: None Complications: None Disposition: Brought to recovery room in stable condition Plan: Follow-up for 10-14 days for wound check and suture removal Indications: The patient is 59 years old, with a left ring finger trigger finger that has been unresponsive to nonoperative management. The risks and benefits of operative treatment including but not limited to risk of damage to blood vessels, nerves, tendons, infection, persistent pain, persistent symptoms, recurrence or possible need for additional surgery were discussed with the patient and the patient wishes to proceed with surgery. Procedure: Once consent was obtained a local block was performed in the preop area using a combination of 1% lidocaine with epinephrine. The patient was then brought back to the operating suite and placed on the operative table in supine position. The left upper extremity was prepped and draped in a standard surgical fashion. Once assured that we had a good block, a 1.5 cm oblique incision was made centered over the A1 rima of the left ring finger . The incision was made through the skin to the subcutaneous tissues using a #15 blade. Careful dissection was made down to the level of the A1 rima using tenotomy scissors, with care being taken to protect the nearby neurovascular structures. A longitudinal incision was made in the A1 rima 1st using a #15 blade, then using tenotomy scissors under direct visualization. The A1 irma was noted to be thickened. Following our A1 rima release, we no longer saw any locking or catching of the digit with flexion and extension. Once satisfied with our A1 rima release the wound was copiously irrigated with normal saline and hemostasis was obtained with a brief period of local pressure. The skin edges were reapproximated with some 5.0 nylon suture material and a sterile dressing was applied. The patient appears to have tolerated the procedure well and with no complications. All digits were well vascularized at the conclusion of the case.
[2025-06-04 13:24] VITALS: BP 120/75; PULSE 84; O2SAT 94
== END 2025-06-04 13:25 | disposition home or self-care (01) ==
PROVIDERS: PCP Internal Medicine; Visit Provider Orthopaedic Surgery
PROC: (CPT 26055; principal; 2025-06-04 12:10)
DX: M65.342 Trigger finger, left ring finger (principal); G62.9 Polyneuropathy, unspecified; G61.81 Chronic inflammatory demyelinating polyneuritis; J45.909 Unspecified asthma, uncomplicated; F32.A Depression, unspecified; F41.9 Anxiety disorder, unspecified; Z98.890 Other specified postprocedural states; Z56.0 Unemployment, unspecified
CPT/HCPCS: 26055; J0165; J2003

== ENCOUNTER → 2025-06-04 11:13 | Outpatient (BNV) | payer OTHER, SELFPAY | PROVIDERS: PCP Internal Medicine; Visit Provider Orthopaedic Surgery | DX: M65.342 Trigger finger, left ring finger (principal) | CPT/HCPCS: 26055 ==

== ENCOUNTER 2025-06-19 10:17 | Outpatient (AMB) | payer OTHER, SELFPAY ==
--- OUTSIDE RECORDS SUMMARY | 2024-05-31 08:31 | XMS_ITS | Encounter Summary ---
Author Organization [employer] Address [address] [place] [address] Care Team Providers Care Lunchroom Supervisor Name Role Phone Kobi Seymour MD Primary Care Provider [phone] Encounter Details Date Type Department Care Team (Latest Contact Info) Description 05/31/2024 9:31 AM EDT Hospital Encounter TH HISTORIC ENCOUNTERS EASTERN CONVERSION ONLY Kalee Connors PA [address] [place] [address] Other dysphagia Social History Tobacco Use Types Packs/Day Years Used Date Smoking Tobacco: Never Smokeless Tobacco: Never Alcohol Use Standard Drinks/Week Comments No 0 (1 standard drink = 0.6 oz pur e alcohol) Housing Instability Answer Date Recorde d Are you worried that in the next 2 months you may not have stable housing? No 08/14/2024 Food Access & Nutrition Answer Date Rec orded Do you have access to a vari ety of food including fruits and vegetables? No 08/14/2024 Health Literacy Answer Date Recorded How often do you need to hav e someone help you when you read instructions, pamphlets, or other written material from your doctor or pharmacy? Sometimes 08/14/2024 Caregiver: How often do you need to have someone help you when you read instructions, pamphlets, or other written material from your doctor or pharmacy? Not on file 08/14/2024 Transportation Answer Date Recorded Has the lack of transportati on kept you from meetings, work, or from getting things needed for daily living? No Has the lack of transportati on kept you from medical appointments or from getting medications? No 08/14/2024 Social Isolation Answer Date Recorded How often do you feel lonely or isolated from th ose around you? Never 08/14/2024 Food Risk Answer Date Recorded Within the past 12 months we worried whether our food would run out before we got money to buy more. Sometimes true 025 Within the past 12 months th e food we bought just didn't last and we didn't have money to get more. Sometimes true 08/14/2024 Dependent Care Answer Date Recorded Do you need help finding or paying for care for your loved ones. For example, child care team lead or elderly care for an older adult? Yes 08/14/2024 Education Answer Date Recorded Do you think completing more education or training, like finishing a GED, going to college, or learning a trade, would be helpful for you? No 08/14/2024 Employment and Income Answer Date Recor ded During the last four weeks, have you been actively looking for work? No 08/14/2024 Living Situation Answer Date Recorded What is your living situation? Unrecognized valu e 08/14/2024 Interpersonal Safety Answer Date Record ed Physical Abuse Unrecognized value 05/10/2025 Verbal Abuse Unrecognized value 05/10/2025 Sex and Gender Information Value Date Recorded Sex Assigned at Male 06/14/2021 4:59 PM EDT Legal Sex Male 7:29 PM EDT Gender Identity Male 06/14/2021 4:59 PM EDT Sexual Orientation Straight 06/14/2021 4: 59 PM EDT documented as of this encounter Functional Status * Calculated C-SSRS Risk Score (Lifetime/Recent) Answer Date of Assessment Author No Risk Indicated 01/05/2025 12:19 AM EDT Amaya Godoy RN * [place] Suicide Severity Rating Scale (Screener/Recent Self-Report) Question Answer Date of Assessment Author 1. Wish to be (Past 1 Month) No 025 12:19 AM EDT Amaya Jaime, RN 2. Non-Specific Active Suici jessi Thoughts (Past 1 Month) No 01/05/2025 12:19 AM EDT Kateryna Jaime RN 6. Suicidal Behavior (Lifetime) No 12:19 AM EDT Amaya Jaime RN documented as of this encounter Plan of Treatment Upcoming Encounters Date Type Department Care Team (Late st Contact Info) Description 09/12/2025 9:45 AM EST Office Visit Adult Medicine [facility] [address] [place] [address] Kobi Seymour MD [address] [place] [address] 10/31/2025 2:00 PM EDT Office Visit Gastroenterology - [address] [phone] Kalee Connors PA [address] [address] documented as of this encounter Procedures Procedure Name Priority Date/Time Associated Diagnosis Comments CR BARIUM SWALLOW Routine 06/01/2024 9:4 7 AM EDT Other dysphagia documented in this encounter Results * CR BARIUM SWALLOW (06/01/2024 9:47 AM EDT) Anatomical Region Laterality Modality Radiographic Barbie ging 05/31/2024 9:35 AM EDT Narrative 06/01/2024 9:[address] [facility] Diagnostic Imaging Department [address] [place] [address] [id number] Patient: FELISHA ALICIAVIDA/Age/Sex: 1965 - 58 - M Unit#: [id number] Location/Status: SPDIGEN/REG CLI Mnemonic/Ordering Site: [facility] Ordering Physician: KALEE CONNORS CR Barium Swallow - 05/31/24 - 1038 Report Status:Signed FINDINGS: Double contrast esophagram performed. COMPARISON: CT angiography chest March 13, 2023 HISTORY: Patient is a 58-year-old male with history of dysphagia, regurgitation. Patient reports recently had endoscopy 2 weeks, but unsure of findings. I personally reached out to the ordering provider BEULAH Valles who explained that endoscopy results were positive for achalasia, patient had subsequent dilation at the GE junction during his endoscopy. Dance Artist radiographs: 1 view chest radiograph demonstrates cardiac and mediastinal borders within normal limits. Lungs are clear bilaterally. Costophrenic angles are sharp. 1 view lateral soft tissue neck demonstrates no prevertebral soft tissue masses. Airway is widely patent. There is an anterior cervical fusion at C5-6. Effervescent crystals were administered orally. Thick and thin barium were administered orally under fluoroscopic control. Esophagus is patulous. There is little peristaltic activity visualized with a smooth, severe narrowing at the area of the GE junction, consistent with achalasia. Given significant retention of contrast within the esophagus, evaluation of mucosal pattern is limited. No grossly evident esophageal ulceration or mass was visualized. Reflux: Unable to assess given contrast retention 13mm Barium pill: Not attempted. DAP: 27.78 Gycm^2 Exam performed and dictated by: Astrid Islas PA-C Supervising physician: Pascual Wilson MD IMPRESSION: Patulous esophagus with little peristaltic activity and smooth, severe narrowing at the area of the GE junction, concerning for achalasia. This finding was confirmed with ordering provider BEULAH Valles at 1040 05/31/2024. Dictating Physician: PASCUAL WILSON MD Electronically Signed by: PASCUAL WILSON MD Dic Date/Time: 05/31/24 1137 Sign date/Time: 06/01/24 6947 Procedure Note Pascual Wilson MD - 06/10/2024 [facility] Diagnostic Imaging Department [address] [place] [id number] Patient: FELISHAEdu ALICIAVIDA./Age/Sex: 1965 - 58 - M Unit#: [id number] Location/Status: SPDIGEN/REG CLI Mnemonic/Ordering Site: [facility] Ordering Physician: KALEE CONNORS CR Barium Swallow - 05/31/24 - 1038 Report Status:Signed FINDINGS: Double contrast esophagram performed. COMPARISON: CT angiography chest March 13, 2023 HISTORY: Patient is a 58-year-old male with history of dysphagia, regurgitation. Patient reports recently had endoscopy 2 weeks, but unsureof findings. I personally reached out to the ordering provider BEULAH Trammell who explained that endoscopy results were positive for achalasia, patienthad subsequent dilation at the GE junction during his endoscopy. Dance Artist radiographs: 1 view chest radiograph demonstrates cardiac andmediastinal borders within normal limits. Lungs are clear bilaterally. Costophrenicangles are sharp. 1 view lateral soft tissue neck demonstrates no prevertebralsoft tissue masses. Airway is widely patent. There is an anterior cervicalfusion at C5-6. Effervescent crystals were administered orally. Thick and thin bariumwere administered orally under fluoroscopic control. Esophagus is patulous. There is little peristaltic activity visualizedwith a smooth, severe narrowing at the area of the GE junction, consistent with achalasia. Given significant retention of contrast within the esophagus, evaluation of mucosal pattern is limited. No grossly evident esophageal ulceration or mass was visualized. Reflux: Unable to assess given contrast retention 13mm Barium pill: Not attempted. DAP: 27.78 Gycm^2 Exam performed and dictated by: Astrid Islas PA-C Supervising physician: Pascual Wilson MD IMPRESSION: Patulous esophagus with little peristaltic activity and smooth, severe narrowing at the area of the GE junction, concerning for achalasia. Thisfinding was confirmed with ordering provider BEULAH Valles at . Dictating Physician: PASCUAL WILSON MD Electronically Signed by: PASCUAL WILSON MD Dic Date/Time: 05/31/24 1137 Sign date/Time: 06/01/24 0947 us Kalee RIOJAS IMG XR PROCEDURES Final Resul t documented in this encounter Visit Diagnoses Diagnosis Other dysphagia documented in this encounter Care Teams Lunchroom Supervisor Relationship Specialty Start Date End Date Kobi Seymour MD [address] [place] [address] PCP - General Internal Medicine 01/14/21 documented as of this encounter
[2025-06-19 10:19] VITALS: BMI 32.2
--- NOTE | 2025-06-19 10:19 | A.OFFVIS_ITS ---
Vital Signs 06/19/25 10:19 Height 5 ft 9 in Weight 218 lb BMI 32.2 Intake Visit Reasons: PO LT RF trigger 06/04/25 AR Intake Note: Gagandeep is a 59 year old right hand dominant male who presents today for a Post- Operative Visit status post Left Ring Trigger Finger Release performed by Dr. Hernandes on 06/04/25. Patient reports he is doing well. He takes Tramadol for other health problems which is helping his pain. He denies finger locking, numbness, or tingling. He is concerned for a spot and redness around incision site. Sutures removed. Allergies No Known Allergies Allergy (Verified 06/19/25 10:19) HPI HPI PO LT RF trigger 06/04/25 AR: Details: Gagandeep is a 59 year old right hand dominant male who presents today for a Post- Operative Visit status post Left Ring Trigger Finger Release performed by Dr. Hernandes on 06/04/25. Patient reports he is doing well. He takes Tramadol for other health problems which is helping his pain. He denies finger locking, numbness, or tingling. He is concerned for a spot and rednes/tenderness around incision site. Sutures removed. [facility] Medical History Cervical spondylarthritis Peripheral neuropathy GERD (gastroesophageal reflux disease) Seasonal allergies Depression Anxiety Asthma Surgical History History of hand surgery History of abdominal surgery History of knee surgery Hx of spinal surgery Social History (Updated 04/17/25 @ 09:53 by SANDI Santos) Are you a primary hospice care sales consultant to a significant other at home: No Do you presently have visiting nurse or other home services: No Patient Tobacco Use Status: Never used Tobacco Current occupational status: unemployed Current occupation: rt handed Review of Systems Const All systems reviewed & are unremarkable except as noted in HPI and below Physical Exam Vital Signs: BMI result Body Mass Index 32.2 Extrem Other: Patient is alert, oriented, and in no acute distress. Neuro: Diminished sensation of the tips of all digits of bilateral hands in the office today No thenar or intrinsic wasting Good APB muscle belly firing in good finger cross Vascular: Cap refill brisk Pain: Tenderness to palpation about the incision site over A1 rima of the left ring finger Minimal discomfort with range of motion of the left ring finger ROM: There is no further visible and palpable locking and catching of the left ring finger Patient is able to flex and extend all digits of bilateral hands fully and without difficulty Skin: There is an approximately 0.5 cm in diameter small white dot that appears to contain some purulence Mild erythema surrounding the incision site over the A1 rima of the left ring finger No lacerations or abrasions. General: No ecchymosis Psych: Appears grossly normal Affect normal Attitude cooperative Assessment & Plan Assessment & Plan (1) Trigger finger, left ring finger: Code(s): M65.342 - Trigger finger, left ring finger Category: Medical Plan 1. Status post left ring finger trigger release DOS 06/04/2025 Patient appears to be recovering fairly well postoperatively Patient is educated about the typical recovery course The small white area is lanced, and approximately 0.25 cc of purulence able to be expressed At this time, due to this area of purulence and mild surrounding erythema patient is sent a one-week course of Augmentin to treat any potential infection that may be occurring around the incision site Patient will follow-up in 1 week for wound check Patient understands this in his amenable to this plan Follow-up in 1 week for wound check, sooner with any acute concerns Medications: New amoxicillin-pot clavulanate 875-125 mg 1 tab PO BID 14 tabs 0RF 7 days Coding Level of Care Code Global (20526) Diagnoses Trigger finger, left ring finger M65.342
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
--- OUTSIDE RECORDS SUMMARY | 2025-06-19 11:49 | XMS_ITS | Patient Health Record ---
Author Organization [facility] Address [address] [place] [address] Care Team Providers Care Chief Hospital Administrator Name Role Phone NO, PCP Primary Care Provider [phone] Ino Silva Unavailable [phone] Reason For Referral No Information Plan Of Treatment No Information Insurance Providers Payer Name Payer Address Payer Phone Subscriber Number Group Number Insured Name Patient Relationship to Insured Coverage Start Date Coverage End Date [place] [address] [place] [address] [id number] Gagandeep Elena Self - patient is the insured 3
== END 2025-06-19 10:35 | disposition home or self-care (01) ==
LOC: HO.HOS 10:18
PROVIDERS: PCP Internal Medicine
DX: M65.342 Trigger finger, left ring finger (principal)
CPT/HCPCS: 99024

== ENCOUNTER → 2025-06-19 10:17 | Outpatient (BNVA) | payer OTHER, SELFPAY | PROVIDERS: PCP Internal Medicine | DX: Z47.89 Encounter for other orthopedic aftercare (principal); M65.342 Trigger finger, left ring finger | CPT/HCPCS: 99212 ==